=== PATIENT | female | born 1940 | race Caucasian/White ===

== ENCOUNTER → 2016-04-13 | Outpatient (CLI) | payer MEDICARE, MEDICAID ==
[~2016-04-13] MED LIST: ACTO150T PO; ALBU17IN INH; DOCU100C PO; FLEEENE4 PR; HYDR25TAB PO; LOSA100T36 PO; MAPA325T2 PO; MECL-68 PO; NORCOTAB PO; NYST10PW TOP; OMEP20CA3 PO; ONDA4VLL IV; OXYC1TAB23 PO; PEG1POW PO; PLAV75TA38 PO; POTA10CA PO; SIMV10TA2 PO; ZANA4TAB PO
--- NOTE | 2016-04-13 12:36 | REP ---
THORACIC SPINE SERIES: THREE VIEWS. HISTORY: Radiculopathy in the lumbar region. Comparison studies are prior lumbar spine studies. Multiple prior lumbar spine MR and radiographic studies have been read as showing a stable wedge compression deformity at T12. This vertebral body does not have a rib. In any event, it is unchanged. There is reactive degenerative disc disease and sclerosis at the T11-12 level, and some degenerative disc changes are seen at T12-L1. Discogenic spurring is noted in the other mid and lower thoracic spine levels. Thoracic vertebral body heights are otherwise preserved. There are degenerative disc changes in the lower cervical spine on swimmer's lateral view. Pedicles and posterior elements are intact. A subtle dextroconvex curvature is seen in the thoracic spine. No paravertebral soft-tissue mass is seen. IMPRESSION: Degenerative spondylosis changes. No acute bony abnormality. Stable wedging at what has been labeled as the T12 level, unchanged. Signed by Elliot Dennis MD 04/13/2016 01:15 P
--- NOTE | 2016-04-13 13:02 | REP ---
Lumbar spine series: Five views. History: Radiculopathy in the lumbar region. Comparison study is from November 24, 2015. Findings: Lumbar vertebral body heights are preserved. There is moderate anterior wedging at the T12 vertebral body unchanged from the prior study. There is discogenic spurring at T12-L1, L1-L2, and to a lesser extent at each of the other lumbar levels. There is a vacuum phenomenon at the narrowed L4-5 disc. Degenerative disc changes at L4-5 are somewhat more pronounced than on the prior study. There is some osteoarthritic facet sclerosis and narrowing bilaterally at L4-5. Psoas margins are intact. There is partial sacralization of the L5 transverse processes bilaterally as before. Sacrum and SI joints are intact. Psoas margins are symmetric. Impression: Degenerative spondylosis changes. Stable T12 wedge compression fracture deformity. Degenerative disc changes at L4-5 are somewhat more pronounced. Signed by Elliot Dennis MD 04/13/2016 01:15 P
== END ==
LOC: M RAD 09:40
PROVIDERS: ATTEND Family Medicine
DX: M47.816 Spondylosis without myelopathy or radiculopathy, lumbar region (principal)

== ENCOUNTER → 2016-04-27 | Outpatient (CLI) | payer MEDICARE, MEDICAID ==
--- NOTE | 2016-05-03 01:01 | ECWPNPC ---
PATIENT NAME: SHAVON CHAVEZ : 1940 GENDER: FEMALE VISIT DATE: 04/27/2016 DISCHARGE DATE: 04/27/16 1609 VISIT LOCKED DATE TIME: PHYSICIAN: JULIO CÉSAR EDMONDS RESOURCE: JULIO CÉSAR EDMONDS REASON FOR APPOINTMENT 1. BACK PAIN HISTORY OF PRESENT ILLNESS NEW PATIENT CONSULT: 75 Y/O FEMALE REFERRED BY DR ALLEN FOR EVALUATION OF CHRONIC LOW THORACIC/LUMBAR PAIN AFTER FALL INJURY IN AUGUST.SHE WAS TREATED WITH TPI AT OUR CLINIC AT THAT TIME WHILE INPATIENT.SHE IS NOT SURE IF SHE GOT ANY IMPROVEMENT.REPORTING FREQUENT FALLS PAST YEAR.RATING PAIN VAS 5/10.DESCRIBES PAIN CONSTANT ACHING AND SHARP PAIN.ALSO REPORTING RIGHT LEG TIGHTNESS SINCE FALL.PAST HISTORY OF RIGHT LEG ANUERISM REPAIR WITH COIL PLACEMENT IN 2009.REPORTING DIFFICULTY STANDING TO DO DISHES.DENIES RECENT FEVER ,ILLNESS OR WEIGHT LOSS.REPORTING NO CHANGES IN BOWEL OR BLADDER FUNCTION. WHEN DID YOUR PAIN FIRST START? . BRIEFLY DESCRIBE HOW YOUR PAIN STARTED? . HOW DOES YOUR PAIN CHANGE WITH TIME? . DOES YOUR PAIN AWAKEN YOU FROM SLEEP? . HOW MANY HOURS OF SLEEP DO YOU NORMALLY GET? . ANY DIAGNOSTIC TESTING? . FACILITY WHERE TESTS WERE DONE? ____. PAIN TREATMENT TREATMENT YES CANCER HAVE YOU EVER HAD ANY TYPE OF CANCER?NO NO. PAIN SCREENING: PATIENT HAS A COMPLAINT OF ACUTE OR CHRONIC PAIN YES FALL RISK SCREENING: SCREENING :NO FALLS IN THE PAST YEAR WILEY INVENTORY: QUESTIONNAIRE ASSESSEDYES SCORE VALUE CALCULATED YES SCORE:6 CURRENT MEDICATIONS TAKING OMEPRAZOLE 20 MG CAPSULE DELAYED RELEASE ORALLY TWICE A DAY TAKING LOSARTAN POTASSIUM 100 MG TABLET ORALLY DAILY TAKING HYDROCHLOROTHIAZIDE 25 MG TABLET ORALLY DAILY TAKING SIMVASTATIN 10 MG TABLET ORALLY DAILY TAKING ACTONEL 150 MG TABLET ORALLY ONCE A MONTH TAKING PLAVIX 75 MG TABLET ORALLY EVERY OTHER DAY TAKING MECLIZINE HCL 25 MG TABLET ORALLY EVERY 8 HOURS NEEDED TAKING SENNA-DOCUSATE SODIUM 1 TABLET TWICE A DAY NEEDED TAKING TYLENOL 2 TABLETS ORAL TWICE A DAY NEEDED TAKING HYDROCODONE-ACETAMINOPHEN 5/325 MG 1 TABLET ORALLY EVERY 6 HRS NEEDED NOT-TAKING LOSARTAN POTASSIUM MEDICATION LIST REVIEWED AND RECONCILED WITH THE PATIENT PAST MEDICAL HISTORY HYPERTENSION HIGH CHOLESTEROL ACID REFLUX HIATEL HERNIA ARTHRITIS BACK PAIN ANUERYSM IN RIGHT LEG COMPRESSION FRACTURE ALLERGIES PENICILLIN (FOR ALLERGIES USE ONLY): SWELLING: ALLERGY ASPIRIN: NAUSEA/VOMITING: ALLERGY ZANTAC: HIVES: ALLERGY IBUPROFEN: NAUSEA/VOMITING: ALLERGY SURGICAL HISTORY HYSTERECTOMY 1970 RIGHT LEG ANUERYSM REPAIR 2009 FAMILY HISTORY FATHER: , DIAGNOSED WITH STROKE MOTHER: , DIAGNOSED WITH CANCER 1 BROTHER(S) , 1 SISTER(S) . SON AND DAUGHTER HAVE DIED6 SIBLINGS HAVE . SOCIAL HISTORY GENERAL: PAIN CLINIC PFS, CLERGY, PUBLIC HEALTH REFERRALS PFS REFERRAL NEEDED?NO CLERGY REFERRAL NEEDED?NO PUBLIC HEALTH REFERRAL NEEDED?NO WAS THE PROVIDER NOTIFIED OF ANY PERTINENT INFO?NO PSYCHOLOGICAL HX TREATMENTNO ALCOHOL OR DRUG TREATMENTNO PATIENT: DENIES USE OF ANY ILLEGAL SUBSTANCE INCLUDING MARIJUANA OR COCAINE, DENIES RECREATIONAL DRUG USE, DENIES ABUSE OR MISUSE OF ANY MEDICATION. ADVANCED DIRECTIVES HEALTH CARE PROXY?YES NAME OF HCP BEAU OCONNELL AND JAI WILSON CONTACT # FOR HCP BEAU OCONNELL [phone] IF YES, DO YOU HAVE A COPY WITH YOU?NO DO YOU HAVE A DNR?NO IF YES, DO YOU HAVE A COPY WITH YOU?NO LIVING WILL?NO POWER OF INDUSTRIAL SAFETY AND HEALTH MANAGER?NO SCREENING/ASSESSMENT TOOL NUTRITION ASSESSEDYES ARE YOU ON ANY SPECIAL DIET?NO ANY SIGNIFICANT CHANGES RELATED TO EATING, WEIGHT GAIN/LOSS, OR BOWEL HABITS?NO IF YES, IS YOUR PRIMARY CARE PROVIDER AWARE OF THIS?NO SPECIAL NEEDS GLASSES: NO , WALKER: NO , LEVEL OF CARE? SELF , DENTURES: NO , REFERRALS NEEDED: NO , HEARING AIDS: NO , WHEELCHAIR: NO , CONTACTS: NO , CANE: NO . TOBACCO USE ARE YOU A:FORMER SMOKER HOW LONG HAS IT BEEN SINCE YOU LAST SMOKED?> 10 YEARS VAPORNO E-CIGARETTENO CAFFEINE CAFFEINE USE?NO RECREATIONAL DRUG USE DRUG USE?NO PATIENT DENIES ABUSE OR MISSUSED OF ANY MEDICATION. PATIENT DENIES USE OF ANY ILLEGAL SUBSTANCE INCLUDING MARIJUANA OR COCAINE. REVIEW OF SYSTEMS CONSTITUTIONAL: ANY CHANGE IN YOUR MEDICAL CONDITION? NO . RECENT ILLNESS DENIES, DENIES . CHILLS NO . FEVER NO, DENIES . WEIGHT LOSS DENIES, DENIES . INFECTION: DO YOU HAVE NEW INFECTIONS? NO . DO YOU HAVE HISTORY OF MRSA? NO . MUSCULOSKELETAL: ANY NEW PATTERNS OF PAIN OR NUMBNESS? NO . SYTEMIC LUPUS NO . JOINT PAIN DENIES . JOINT STIFFNESS DENIES . GASTROENTEROLOGY: BOWEL INCONTINENCE DENIES . ANY NEW CHANGE IN BOWEL CONTROL? NO . BARRETTS ESOPHAGUS NO . CIRRHOSIS NO . HEPATITIS NO . LIVER FAILURE NO . ACID REFLUX YES . BLOOD IN STOOL DENIES . UNEXPLAINED WEIGHT LOSS NO . GENITOURINARY: ANY NEW CHANGE IN BLADDER CONTROL? NO . IS THERE A CHANCE YOU COULD BE ? NO . HEMATOLOGY/LYMPH: DENIES . BLEEDING DISORDER DENIES . DO YOU TAKE ANY BLOOD THINNERS? (FOR EXAMPLE- COUMADIN, PLAVIX, AGGRENOX, PLATEL, PRADAXA, OR XARELTO) YES, PLAVIX . WHEN WAS YOUR LAST DOSE? DATE: 04/26/16 TIME: . LOW PLATELET COUNT NO . SICKLE CELL DISEASE NO . VON WILLIEBRANDS NO . FACTOR V LEIDEN NO . THALLASEMIA NO . ANEMIA NO . EASY BRUISING NO . NEUROLOGY: HAVE YOU FALLEN IN THE PAST 6 MONTHS? YES . ANY NEW EXTREMITY NUMBNESS OR WEAKNESS? NO . HEAD INJURY NO . DEMENTIA NO . CEREBRAL PALSY NO . MULTIPLE SCLEROSIS NO . DIZZINESS NO . HEADACHE NO, DENIES . SEIZURES DENIES . STROKES NO . VERTIGO NO . CARDIOLOGY: DO YOU HAVE A PACEMAKER OR DEFIBRILLATOR? NO . ANGINA NO . HEART ATTACK NO . HEART SURGERY NO . CONGESTIVE HEART FAILURE/FLUID OVERLOAD NO . CHEST PAIN NO, DENIES, DENIES . HIGH BLOOD PRESSURE YES, ON MEDICATION(S) . IRREGULAR HEART BEAT NO . SHORTNESS OF BREATH DENIES, DENIES . RESPIRATORY: HAVE YOU BEEN SICK IN THE PAST WEEK? NO . FEVER NO . FLU LIKE SYMPTOMS? NO . CPAP NO . BYPAP NO . ASTHMA NO . EMPHYSEMA NO . CHRONIC LUNG DISEASES NO . SHORTNESS OF BREATH ON EXERTION NO . DO YOU USE ANY TYPE OF TOBACCO (SMOKE, SMOKELESS, CHEW)? NO . COUGH NO, DENIES, DENIES . SHORTNESS OF BREATH DENIES, DENIES . SNORING NO . INTEGUMENTARY: DO YOU HAVE ANY RASHES OR OPEN SORES? NO . ALLERGIC/IMMUNO: ARE YOU ALLERGIC TO SHELLFISH OR IV DYE? NO . ANY NEW ALLERGIES? NO . PSYCHIATRIC: DO YOU HAVE THOUGHTS OF HURTING YOURSELF OR SOMEONE ELSE? NO . ARE YOU ABUSED, NEGLECTED, OR IN AN UNSAFE ENVIRONMENT? NO . ENDOCRINOLOGY: THYROID DISEASE DENIES . ARE YOU DIABETIC? NO . DIABETES DENIES . THYROID DISORDER NO . OTHER: DO YOU NEED ANY PRESCRIPTIONS? NO . IF YES, PLEASE LIST: ____ . ANY NEW PROBLEMS WITH YOUR MEDICATIONS? NO . WHEN DID YOU LAST EAT? ____ . WHEN DID YOU LAST DRINK? ____ . WHAT DID YOU LAST DRINK? ____ . NAME OF PERSON DRIVING YOU HOME? ____ . DO YOU HAVE ANY OTHER QUESTIONS OR CONCERNS NO . HEENT: CHANGE IN VISION DENIES . LOSS OF HEARING DENIES . TROUBLE SWALLOWING DENIES . PSYCHOLOGY: ANXIETY DENIES . DEPRESSION DENIES . UROLOGY: URINARY INCONTINENCE DENIES . BLOOD IN URINE DENIES . REVIEWED BY: PROVIDER: JULIO CÉSAR REYES . VITAL SIGNS WT 183.4 LBS, HT 63", BMI 32.48 INDEX, BP 172/70 MANUAL, HR 90 /MIN, RR 18 /MIN, TEMP 98.3 F, OXYGEN SAT % 98, NA INITIALS TL 1304, REVIEWED BY: CSELEVATED BP, MANUAL BP 172/70-TL. EXAMINATION GENERAL EXAMINATION: HEENT:HEAD:, NORMOCEPHALIC, EYES:, EYES NORMAL, NOSE:, NOSE CLEAR, THROAT: NORMAL. LUNGS:LUNG SOUNDS ARE CLEAR. HEART:HEART RATE REGULAR. ABDOMEN:SOFT AND NOT TENDER, NON-DISTENDED. MUSCULOSKELETAL:*. LUMBAR SACRAL SPINEMUSCLE STRENGTH TESTING 5/5 BLE.PALPATION: + FOR PAIN OVER L/S SPINE. +FOR PAIN OVER L/S PARASPINALS. THORACIC SPINENEGATIVE FOR PAIN WITH PALPATION OF THORACIC SPINE. NEGATIVE FOR PAIN WITH PALPATION OF THORACIC PARASPINAL. CERVICALNEGATIVE FOR PAIN WITH PALPATION OF CERVICAL SPINE. NEGATIVE FOR PAIN WITH PALPATION OF CERVICAL PARASPINALS. NEGATIVE FOR PAIN WITH PALPATION OF TRAPEZIUS BILAT. SKIN:NORMAL, NO RASH. NEUROLOGIC EXAM:ALERT AND ORIENTED X 3, DTRS 1-2+ IN ALL 4 EXTREMITIES, DENIES UPPER EXTREMETIES SENSORY LOSS, DENIES LOWER EXTREMETIES SENSORY LOSS. DIAGNOSTIC: . DIAGNOSTIC: . 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 L3/4-L4/5 THERAPEUTIC FACET BLOCK NOTES: FACET JOINT INJECTION MATERIAL WAS PRINTED,FACET JOINT INJECTION: YOUR EXPERIENCE MATERIAL WAS PRINTED. REFERRAL TO:PHYSICAL THERAPIST REASON:2XWK X 6WK MUSCLE STRENGTHENING /ROJM LUMBAR SPINAL STENOSIS LUMBAR FACET JULIO CÉSAR PRESLEY 04/27/2016 2:33:11 PM > BILAT. L3/4-L4/5 THERAPEUTIC FACET BLOCK OTHERS CLINICAL NOTES: [facility]-STAT [id number], FALLS CARE PLAN: 1. RECOMMEND REMOVING ALL THROW RUGS. 2. RECOMMEND NIGHT LIGHTS 3. RECOMMEND WEARING RUBBER SOLED SHOES AND TO NOT GO BAREFOOT. 4.. ADVISED TO CHANGE POSITION SLOWLY FROM SUPINE TO STANDING TO AVOID DIZZINESS. 5. ADVISED TO USE ASSISTIVE DEVICE SUCH CANE OR WALKER 6. USE [employer] OR KEEP PORTABLE PHONE READILY AVAILABLE, #128 - SCREENING BMI AND F/U PLAN IN : BMI ABOVE NORMAL TODAY. DISCUSSED WITH PATIENT NUTRITIONAL FOOD CHOICES TO ASSIST WITH WEIGHT LOSS. RECCOMMENDED REDUCING SALT, SUGAR, SODA INTAKE. RECOMMEND INCREASE ACTIVITY TO INCLUDE WALKING ON A REGULAR BASIS. PROFESSIONAL NUTRITIONAL NUTRITIONAL GUIDANCE WAS OFFERED AND WAS DECLINED. , PATIENT WAS ADVISED TO START A WALKING PROGRAM TO STRENGTHEN LUMBAR PARASPINAL MUSCLES AND IMPROVE MOBILITY. THEY WERE ADVISED THAT THIS WILL IMPROVE WEIGHT LOSS AND ALSO DEPRESSION/FIBROMYALGIA SYMPTOMS. ADVISED TO WALK 10 MINUTES EVERY OTHER DAY ON A FLAT SURFACE. EMPHASIZED THE IMPORTANCE OF DOING THIS CONSISTANTLY AND NOT SPORATICALLY TO AVOID INJURY. STRONG ADVISED NOT TO DO MORE THAN 10 MINUTES EVERY OTHER DSY FOR THE FIRST 4 WEEKS. PROCEDURE CODES FA211 ESTABILISHED PATIENT [facility] FACILITY CHARGE G8783 BP SCR PRFRM RCMDD DEFIND SCR INTVL 3016F PT SCRND UNHLTHY [place] USE 1123F ACP DISCUSS/DSCN MKR DOCD 1036F TOBACCO NON-USER 0518F FALL PLAN OF CARE DOCD G8427 DOC MEDS VERIFIED W/PT OR RE G8417 BMI >=30 CALCUATE W/FOLLOWUP 3288F FALL RISK ASSESSMENT DOCD DISPOSITION & COMMUNICATION FOLLOW UP 2WK POST (REASON: BILAT L3/4-L4/5 THERAPEUTIC FACET BLOCK SEND STOP PLAVIX X7 DAYS SCHEDULE DAY #8) ELECTRONICALLY SIGNED BY ERIC MARTÍNEZ ON 05/02/2016 AT 06:54 PM EDT DISCLAIMER : THIS IS A VISIT SUMMARY EXTRACTED FROM THE [employer] CHART. IT IS NOT A COPY OF THE [employer] PROGRESS NOTE. MTDD
== END ==
LOC: M PAIN 13:20
PROVIDERS: ATTEND Nurse Practitioner Family
DX: M47.817 Spondylosis without myelopathy or radiculopathy, lumbosacral region (principal); M48.06 Spinal stenosis, lumbar region; M54.9 Dorsalgia, unspecified; Z79.891 Long term (current) use of opiate analgesic; Z79.899 Other long term (current) drug therapy; Z88.0 Allergy status to penicillin; Z88.6 Allergy status to analgesic agent; Z88.8 Allergy status to other drugs, medicaments and biological substances; I10 Essential (primary) hypertension; E78.00 Pure hypercholesterolemia, unspecified; K21.9 Gastro-esophageal reflux disease without esophagitis; K44.9 Diaphragmatic hernia without obstruction or gangrene

== ENCOUNTER → 2016-05-18 | Outpatient (CLI) | payer MEDICARE, MEDICAID ==
[~2016-05-18] MED LIST changes: +BUPIVACAINE HCL 0.25% 30 ML VIAL As Ordered ONE; +ISOVUE-M 300 61% 15ML VIAL (Q9967) As Ordered ONE; +LIDOCAINE 1% SDV INJ 30 ML VIAL As Ordered ONE; +TRIAMCINOLONE ACETONIDE SUSP 40 MG/ML VIAL (J3301) As Ordered ONE; +diazePAM 5 MG TAB As Ordered ONE; +oxyCODONE 5MG TAB As Ordered ONE
--- NOTE | 2016-05-18 13:40 | REP ---
PARTIAL LUMBAR SPINE SERIES: Five views. HISTORY: Injection procedure for pain. 50 seconds of fluoroscopy time is reported. FINDINGS: A sequence of five fluoroscopically obtained last image hold spot radiographs of the lumbar spine document various needle positions and contrast injections associated with lumbar spine facet injection procedure. Signed by Elliot Dennis MD 05/18/2016 03:43 P
--- NOTE | 2016-05-24 00:02 | ECWPNPC ---
PATIENT NAME: SHAVON CHAVEZ : 1940 GENDER: FEMALE VISIT DATE: 05/18/2016 DISCHARGE DATE: 05/18/16 1149 VISIT LOCKED DATE TIME: PHYSICIAN: COLUMBA SCOTT RESOURCE: COLUMBA SCOTT REASON FOR APPOINTMENT 1. LUMBAR FACET CURRENT MEDICATIONS TAKING OMEPRAZOLE 20 MG CAPSULE DELAYED RELEASE ORALLY TWICE A DAY, NOTES: 05/17/16 0700 TAKING LOSARTAN POTASSIUM 100 MG TABLET ORALLY DAILY, NOTES: 05/18/16 0615 TAKING HYDROCHLOROTHIAZIDE 25 MG TABLET ORALLY DAILY, NOTES: 05/17/16 0700 TAKING SIMVASTATIN 10 MG TABLET ORALLY DAILY, NOTES: 05/17/16 1900 TAKING ACTONEL 150 MG TABLET ORALLY ONCE A MONTH, NOTES: 04/28/16 TAKING PLAVIX 75 MG TABLET ORALLY EVERY OTHER DAY, NOTES: 05/10/16 TAKING MECLIZINE HCL 25 MG TABLET ORALLY EVERY 8 HOURS NEEDED, NOTES: NONE LATELY TAKING SENNA-DOCUSATE SODIUM 1 TABLET TWICE A DAY NEEDED, NOTES: 05/16/16 TAKING TYLENOL 2 TABLETS ORAL TWICE A DAY NEEDED, NOTES: 05/17/16 TAKING HYDROCODONE-ACETAMINOPHEN 5/325 MG 1 TABLET ORALLY EVERY 6 HRS NEEDED, NOTES: NONE LATELY NOT-TAKING LOSARTAN POTASSIUM MEDICATION LIST REVIEWED AND RECONCILED WITH THE PATIENT PAST MEDICAL HISTORY HYPERTENSION HIGH CHOLESTEROL ACID REFLUX HIATEL HERNIA ARTHRITIS BACK PAIN ANUERYSM IN RIGHT LEG COMPRESSION FRACTURE ALLERGIES PENICILLIN (FOR ALLERGIES USE ONLY): SWELLING: ALLERGY ASPIRIN: NAUSEA/VOMITING: ALLERGY ZANTAC: HIVES: ALLERGY IBUPROFEN: NAUSEA/VOMITING: ALLERGY VITAL SIGNS WT 183 LBS, HT 63", BMI 32.41 INDEX, BP 180/81 MM HG, HR 98 /MIN, RR 18 /MIN, TEMP 98.4 F, OXYGEN SAT % 98%, NA INITIALS SC09:24, REVIEWED BY: MLF. ASSESSMENTS SPONDYLOSIS WITHOUT MYELOPATHY OR RADICULOPATHY, LUMBAR REGION - M47.816 (PRIMARY) SPONDYLOSIS WITHOUT MYELOPATHY OR RADICULOPATHY, LUMBOSACRAL REGION - M47.817 PROCEDURES PN LUMBAR FACET BLOCK THERAPEUTIC PRE PROCEDURE DIAGNOSIS LUMBAR SPONDYLOSIS, LUMBOSACRAL SPONDYLOSIS POST PROCEDURE DIAGNOSIS LUMBAR SPONDYLOSIS,, LUMBOSACRAL SPONDYLOSIS PROCEDURE BILATERAL L4-L5 AND BILATERAL L5-S1 FACET THERAPEUTIC BLOCK SURGEON DR. COLUMBA SCOTT EMERGENCY ROOM PHYSICIAN NONE ANESTHESIA LOCAL PRE PROCEDURE NOTE THE PATIENT HAS A HISTORY OF CHRONIC LOW BACK PAIN. I EVALUATE THE PATIENT AND REVIEWED THE CHART. I WENT OVER THE RISKS, ALTERNATIVES, AND BENEFITS ASSOCIATED WITH THIS PROCEDURE. THE PATIENT WOULD LIKE TO PROCEED AND GIVE CONSENT TO PERFORMED THE PROCEDURE. THE PATIENT DENIES UNEXPLAINABLE WEIGHT LOSS, FEVER, CHILLS, OR NEW CHANGES IN URINARY OR BOWEL CONTROL DESCRIPTION OF PROCEDURE THE PATIENT WAS BROUGHT TO THE PROCEDURE ROOM AND PLACED IN THE PRONE POSITION. THE LUMBOSACRAL AREA WAS CLEANED WITH CHLORAPREP SOLUTION AND DRAPED ASEPTICALLY. THE PROCEDURE WAS DONE UNDER STERILE CONDITIONS. I CHECKED LATERALITY AND THE LEVEL WHERE THE PROCEDURE WAS GOING TO BE PERFORMED WITH THE PATIENT AND THE SUPPORTING STAFF AT THE MOMENT OF THE TIME OUT IN THE PROCEDURE ROOM. UNDER FLUOROSCOPIC GUIDANCE, THE TARGET POINT WAS SELECTED AT THE RIGHT AND LEFT L4-L5 AND RIGHT AND LEFT L5-S1 FACET JOINT. TARGET POINT WAS SELECTED AFTER LATERAL ROTATION AND TILT OF THE MAGNIFIER OF THE C-ARM. LIDOCAINE 0.5% WAS USED TO NUMB THE SKIN AND THE SUBCUTANEOUS TISSUE BELOW IT. SPINAL NEEDLES, 22-GAUGE, WERE ADVANCED UNDER FLUOROSCOPIC GUIDANCE AND FOLLOWING PATIENT FEEDBACK UNTIL THE TARGETS WERE TOUCHED. THE POSITION OF THE NEEDLES WAS VERIFIED WITH AP AND LATERAL VIEWS. AFTER PROPER POSITION OF THE NEEDLES WAS ACHIEVED, ISOVUE-M DYE 30% 0.1 ML WAS INJECTED SHOWING ADEQUATE SPREAD OF THE DYE. THEN A SOLUTION OF 1.9 ML OF BUPIVACAINE 0.125% OF KENALOG 10 MG WAS INJECTED AT EACH SITE. THERE WAS NO EVIDENCE OF BLOOD, PARESTHESIA OR CEREBROSPINAL FLUID DURING THE PROCEDURE. THE PATIENT WAS SENT TO THE RECOVERY ROOM. THE PATIENT WAS MOVING THE EXTREMITIES AND DOING WELL. THERE WAS NO COMPLICATION DURING THE PROCEDURE. FLUOROSCOPY TIME WAS 50 SECONDS POST PROCEDURE NOTE THE PATIENT WILL BE SEEN IN A FOLLOW UP IN THE NEXT FEW WEEKS. INSTRUCTIONS WERE GIVEN, QUESTIONS WERE ANSWERED, AND THE PATIENT EXPRESSED UNDERSTANDING AND AGREES WITH THE PLAN. I, VICTOR HUGO HINOJOSA, DOCUMENTED THE ABOVE INFORMATION ACTING A SCRIBE FOR DR. SCOTT. I HAVE REVIEWED THE ABOVE DOCUMENT, WRITTEN BY VICTOR HUGO HINOJOSA SCRIBPaz AND I VERIFY THAT IT IS ACCURATE. DIAGNOSTIC IMAGING [facility] FACET BLOCK (PAIN)[id number] PROCEDURE CODES 69565 INJ PARAVERT F JNT L/S 1 LEV 03690 INJ PARAVERT F JNT L/S 2 LEV 6045F RADXPS IN END [id number] PXD DISPOSITION & COMMUNICATION FOLLOW UP 3 WEEKS ELECTRONICALLY SIGNED BY COLUMBA SCOTT MD ON 05/23/2016 AT 09:50 PM EDT DISCLAIMER : THIS IS A VISIT SUMMARY EXTRACTED FROM THE [employer] CHART. IT IS NOT A COPY OF THE [employer] PROGRESS NOTE. MTDD
== END ==
LOC: M PAIN 09:00
PROVIDERS: ATTEND Anesthesiology
DX: M47.816 Spondylosis without myelopathy or radiculopathy, lumbar region (principal); M47.817 Spondylosis without myelopathy or radiculopathy, lumbosacral region; Z79.891 Long term (current) use of opiate analgesic; Z79.899 Other long term (current) drug therapy; K21.9 Gastro-esophageal reflux disease without esophagitis
CPT/HCPCS: 64493; 64494; J3301; Q9967

== ENCOUNTER → 2016-06-08 | Outpatient (CLI) | payer MEDICARE, MEDICAID ==
[~2016-06-08] MED LIST changes: -BUPIVACAINE HCL 0.25% 30 ML VIAL As Ordered ONE; -ISOVUE-M 300 61% 15ML VIAL (Q9967) As Ordered ONE; -LIDOCAINE 1% SDV INJ 30 ML VIAL As Ordered ONE; -TRIAMCINOLONE ACETONIDE SUSP 40 MG/ML VIAL (J3301) As Ordered ONE; -diazePAM 5 MG TAB As Ordered ONE; -oxyCODONE 5MG TAB As Ordered ONE
--- NOTE | 2016-06-22 01:02 | ECWPNPC ---
PATIENT NAME: SHAVON CHAVEZ : 1940 GENDER: FEMALE VISIT DATE: 06/08/2016 DISCHARGE DATE: 06/08/16 1026 VISIT LOCKED DATE TIME: PHYSICIAN: JULIO CÉSAR EDMONDS RESOURCE: JULIO CÉSAR EDMONDS REASON FOR APPOINTMENT 1. LOW BACK HISTORY OF PRESENT ILLNESS HISTORY OF PRESENT ILLNESS: HER FOR POST PROCEDURE F/U.HAD BILAT. L4/5-L5/S1 THERAPEUTIC FACET BLOCK ON 05-18-16.REPORTS NO IMPROVEMENT POST PROCEDURE.RATING PAIN VAS 5/10.CONTINUES WITH COMPLAINTS OF UNSTEADY BALANCE AND INABILITY TO TOLERATE LOW BACK PAIN WHILE STANDING TO DO DISHES.DISCUSSED TREATMENT OPTIONS TO INCLUDE LESI AND RECONDITIONING PROGRAM.PATIENT WOULD LIKE TO TRY WALKING PROGRAM AND WILL THINK ABOUT ANY MORE INJECTIONS. PAIN THE PATIENT DESCRIBES THE PAIN... FALL RISK SCREENING: SCREENING :NO FALLS IN THE PAST YEAR CURRENT MEDICATIONS TAKING OMEPRAZOLE 20 MG CAPSULE DELAYED RELEASE ORALLY TWICE A DAY PRN TAKING LOSARTAN POTASSIUM 100 MG TABLET ORALLY DAILY TAKING HYDROCHLOROTHIAZIDE 25 MG TABLET ORALLY DAILY TAKING SIMVASTATIN 10 MG TABLET ORALLY DAILY TAKING ACTONEL 150 MG TABLET ORALLY ONCE A MONTH TAKING PLAVIX 75 MG TABLET ORALLY EVERY OTHER DAY TAKING MECLIZINE HCL 25 MG TABLET ORALLY EVERY 8 HOURS NEEDED TAKING SENNA-DOCUSATE SODIUM 1 TABLET TWICE A DAY NEEDED TAKING TYLENOL 500MGS 2 TABLETS ORAL TWICE A DAY NEEDED TAKING HYDROCODONE-ACETAMINOPHEN 5/325 MG 1 TABLET ORALLY EVERY 6 HRS NEEDED NOT-TAKING LOSARTAN POTASSIUM MEDICATION LIST REVIEWED AND RECONCILED WITH THE PATIENT PAST MEDICAL HISTORY HYPERTENSION HIGH CHOLESTEROL ACID REFLUX HIATEL HERNIA ARTHRITIS BACK PAIN ANUERYSM IN RIGHT LEG COMPRESSION FRACTURE ALLERGIES PENICILLIN (FOR ALLERGIES USE ONLY): SWELLING: ALLERGY ASPIRIN: NAUSEA/VOMITING: ALLERGY ZANTAC: HIVES: ALLERGY IBUPROFEN: NAUSEA/VOMITING: ALLERGY SOCIAL HISTORY GENERAL: TOBACCO USE ARE YOU A:FORMER SMOKER VAPORNO HOW LONG HAS IT BEEN SINCE YOU LAST SMOKED?> 10 YEARS E-CIGARETTENO RECREATIONAL DRUG USE PATIENT DENIES USE OF ANY ILLEGAL SUBSTANCE INCLUDING MARIJUANA OR COCAINE. PATIENT DENIES ABUSE OR MISSUSED OF ANY MEDICATION. DRUG USE?NO CAFFEINE CAFFEINE USE?NO PSYCHOLOGICAL HX TREATMENTNO PAIN CLINIC PFS, CLERGY, PUBLIC HEALTH REFERRALS CLERGY REFERRAL NEEDED?NO WAS THE PROVIDER NOTIFIED OF ANY PERTINENT INFO?NO PFS REFERRAL NEEDED?NO PUBLIC HEALTH REFERRAL NEEDED?NO PATIENT: DENIES USE OF ANY ILLEGAL SUBSTANCE INCLUDING MARIJUANA OR COCAINE, DENIES RECREATIONAL DRUG USE, DENIES ABUSE OR MISUSE OF ANY MEDICATION. ADVANCED DIRECTIVES HEALTH CARE PROXY?YES DO YOU HAVE A COPY WITH YOU?NO POWER OF HALF BACKER?NO NAME OF HCP BEAU OCONNELL AND JAI STEVE CONTACT # FOR HCP BEAU OCONNELL [phone] REVIEW OF SYSTEMS CONSTITUTIONAL: ANY CHANGE IN YOUR MEDICAL CONDITION? NO . CHILLS NO . FEVER NO . INFECTION: DO YOU HAVE NEW INFECTIONS? NO . DO YOU HAVE HISTORY OF MRSA? NO . MUSCULOSKELETAL: ANY NEW PATTERNS OF PAIN OR NUMBNESS? NO . GASTROENTEROLOGY: ANY NEW CHANGE IN BOWEL CONTROL? NO . GENITOURINARY: ANY NEW CHANGE IN BLADDER CONTROL? NO . IS THERE A CHANCE YOU COULD BE ? NO . HEMATOLOGY/LYMPH: DO YOU TAKE ANY BLOOD THINNERS? (FOR EXAMPLE- COUMADIN, PLAVIX, AGGRENOX, PLATEL, PRADAXA, OR XARELTO) YES, PLAVIX . WHEN WAS YOUR LAST DOSE? DATE: TIME: 06/07/16 0700 . NEUROLOGY: HAVE YOU FALLEN IN THE PAST 6 MONTHS? YES, A COUPL OF TIMES. LAST NO INJURY. . ANY NEW EXTREMITY NUMBNESS OR WEAKNESS? NO . CARDIOLOGY: DO YOU HAVE A PACEMAKER OR DEFIBRILLATOR? NO . RESPIRATORY: HAVE YOU BEEN SICK IN THE PAST WEEK? NO . FEVER NO . FLU LIKE SYMPTOMS? NO . COUGH NO . INTEGUMENTARY: DO YOU HAVE ANY RASHES OR OPEN SORES? NO . ALLERGIC/IMMUNO: ARE YOU ALLERGIC TO SHELLFISH OR IV DYE? NO . ANY NEW ALLERGIES? NO . PSYCHIATRIC: DO YOU HAVE THOUGHTS OF HURTING YOURSELF OR SOMEONE ELSE? NO . ARE YOU ABUSED, NEGLECTED, OR IN AN UNSAFE ENVIRONMENT? NO . ENDOCRINOLOGY: ARE YOU DIABETIC? NO . OTHER: DO YOU NEED ANY PRESCRIPTIONS? NO . IF YES, PLEASE LIST: ____ . ANY NEW PROBLEMS WITH YOUR MEDICATIONS? NO . WHEN DID YOU LAST EAT? ____ . WHEN DID YOU LAST DRINK? ____ . WHAT DID YOU LAST DRINK? ____ . NAME OF PERSON DRIVING YOU HOME? ____ . DO YOU HAVE ANY OTHER QUESTIONS OR CONCERNS NOT MUCH RELIEF FROM THE FACET BLOCK DONE 05/18/16. SHE FORGOT TO BRING HER PAIN DIARY. NOT INTERESTED IN RF. SHE IS UNABLE TO STAND FOR ANY PERIOD OF TIME DUE TO PAIN AND THIS CAUSES HER BALANCE TO BE OFF . REVIEWED BY: PROVIDER: JULIO CÉSAR REYES . VITAL SIGNS WT 189.8 LBS, HT 63", BMI 33.62 INDEX, BP 160/80 MANUAL, HR 78 /MIN, RR 18 /MIN, TEMP 97.7 F, OXYGEN SAT % 98%, NA INITIALS TL 0932, REVIEWED BY: ADELEVATED BP 160/80 MANUAL- TL. EXAMINATION GENERAL EXAMINATION: HEENT:HEAD:, NORMOCEPHALIC, EYES:, EYES NORMAL, NOSE:, NOSE CLEAR, THROAT: NORMAL. LUNGS:LUNG SOUNDS ARE CLEAR. HEART:HEART RATE REGULAR. ABDOMEN:SOFT AND NOT TENDER, NON-DISTENDED. MUSCULOSKELETAL:*. LUMBAR SACRAL SPINEMUSCLE STRENGTH TESTING 5/5 BLE.PALPATION: + FOR PAIN OVER L/S SPINE. +FOR PAIN OVER L/S PARASPINALS. THORACIC SPINENEGATIVE FOR PAIN WITH PALPATION OF THORACIC SPINE. NEGATIVE FOR PAIN WITH PALPATION OF THORACIC PARASPINAL. CERVICALNEGATIVE FOR PAIN WITH PALPATION OF CERVICAL SPINE. NEGATIVE FOR PAIN WITH PALPATION OF CERVICAL PARASPINALS. NEGATIVE FOR PAIN WITH PALPATION OF TRAPEZIUS BILAT. SKIN:NORMAL, NO RASH. NEUROLOGIC EXAM:ALERT AND ORIENTED X 3, DTRS 1-2+ IN ALL 4 EXTREMITIES, DENIES UPPER EXTREMETIES SENSORY LOSS, DENIES LOWER EXTREMETIES SENSORY LOSS. DIAGNOSTIC:MRIL/S [id number] REVIEWED. ASSESSMENTS SPONDYLOSIS OF LUMBOSACRAL REGION, UNSPECIFIED SPINAL OSTEOARTHRITIS COMPLICATION STATUS - M47.817 (PRIMARY) LUMBAR SPINAL STENOSIS - M48.06 TREATMENT SPONDYLOSIS OF LUMBOSACRAL REGION, UNSPECIFIED SPINAL OSTEOARTHRITIS COMPLICATION STATUS NOTES: PATIENT WAS ADVISED TO START A WALKING PROGRAM TO STRENGTHEN LUMBAR PARASPINAL MUSCLES AND IMPROVE MOBILITY. THEY WERE ADVISED THAT THIS WILL IMPROVE WEIGHT LOSS AND ALSO DEPRESSION/FIBROMYALGIA SYMPTOMS. ADVISED TO WALK 10 MINUTES EVERY OTHER DAY ON A FLAT SURFACE. EMPHASIZED THE IMPORTANCE OF DOING THIS CONSISTANTLY AND NOT SPORATICALLY TO AVOID INJURY. STRONG ADVISED NOT TO DO MORE THAN 10 MINUTES EVERY OTHER DAY FOR THE FIRST 4 WEEKS. PROCEDURE CODES FA211 ESTABILISHED PATIENT [facility] FACILITY CHARGE G8730 PAIN ASSESS POS TOOL F/U PLAN DOC G8427 DOC MEDS VERIFIED W/PT OR RE DISPOSITION & COMMUNICATION FOLLOW UP 2 MONTHS ELECTRONICALLY SIGNED BY ERIC MARTÍNEZ ON 06/21/2016 AT 04:31 PM EDT DISCLAIMER : THIS IS A VISIT SUMMARY EXTRACTED FROM THE [email or web address] CHART. IT IS NOT A COPY OF THE [email or web address] PROGRESS NOTE. TARID
== END ==
LOC: M PAIN 09:40
PROVIDERS: ATTEND Nurse Practitioner Family
DX: M47.817 Spondylosis without myelopathy or radiculopathy, lumbosacral region (principal); M48.06 Spinal stenosis, lumbar region; Z79.891 Long term (current) use of opiate analgesic; Z79.899 Other long term (current) drug therapy; Z88.6 Allergy status to analgesic agent; Z88.8 Allergy status to other drugs, medicaments and biological substances; I10 Essential (primary) hypertension; E78.00 Pure hypercholesterolemia, unspecified; K21.9 Gastro-esophageal reflux disease without esophagitis; M19.90 Unspecified osteoarthritis, unspecified site; K44.0 Diaphragmatic hernia with obstruction, without gangrene; Z86.79 Personal history of other diseases of the circulatory system; Z87.81 Personal history of (healed) traumatic fracture

== ENCOUNTER → 2016-06-16 | Outpatient (CLI) | payer MEDICARE, MEDICAID ==
--- NOTE | 2016-06-16 10:44 | REPMRS ---
Patient History The patient states she has not had a clinical breast exam in over a year. Patient is postmenopausal. No known family history of cancer. Digital Woman Screen Mammo: June 16, 2016 - Exam #: [id number] Bilateral CC and MLO view(s) were taken. Technologist: Marjorie Russo Technologist Prior study comparison: January 04, 2015, digital woman screen mammo performed at [facility] to [facility]. December 01, 2013, digital woman screen mammo performed at [facility] to [facility]. FINDINGS: There are scattered fibroglandular densities. There has been no change in the appearance of the mammogram from the prior studies. There is a mild amount of residual fibroglandular tissue which is fairly symmetric. There is no interval development of dominant mass, architectural distortion, or clustered microcalcification suggestive of malignancy. ASSESSMENT: BI-RADS/ACR category 1 mammogram. Negative. Recommendation Routine screening mammogram in 1 year (for women over age 40). This mammogram was interpreted with the aid of an FDA-approved computer-aided dectection system. Electronically Signed By: Solo Nava MD 06/16/16 0258
--- NOTE | 2016-06-19 10:33 | DEXA ---
AP SPINE L1 - L4 1.142 -0.4 0.7 LT FEMUR TOTAL 0.725 -2.2 -1.0 RT FEMUR TOTAL 0.723 -2.3 -1.0 TOTAL BODY TOTAL OTHER DUAL FEMUR FRAX* ASSESSMENT Risk factors: History of adult fracture. 10 year probability of fracture Major osteoporotic fracture 24.3 % Hip fracture 7.4 % COMMENTS: Normal bone densitometry of the spine. There is low bone density of the right hip. There is osteoporosis of the left hip. The density of the spine has increased 37.4% since the initial exam on 1999. The spine density has increased 17.6% since the most recent exam on 10/30/2012. The density of the left hip has decreased 0.5% since the initial exam on 1999. The density of the left hip has decreased 3.6% since the most recent exam on . The density of the right hip has increased 1.7% since the initial exam on 1999. The density of the right hip has increased 2.1% since the most recent exam on . FOLLOW-UP: Recommendation for the next bone density exam: 2 years. NOEMI
== END ==
LOC: M WHC 08:38
PROVIDERS: ATTEND Family Medicine
DX: Z12.31 Encounter for screening mammogram for malignant neoplasm of breast (principal); M81.0 Age-related osteoporosis without current pathological fracture; Z78.0 Asymptomatic menopausal state; Z87.81 Personal history of (healed) traumatic fracture
CPT/HCPCS: 77080; G0202

== ENCOUNTER → 2016-09-05 | Outpatient (CLI) | payer MEDICARE, MEDICAID ==
[~2016-09-05] MED LIST changes: -DOCU100C PO; +DOCU100C16 PO; +PLAV1TAB2 PO; -PLAV75TA38 PO
--- NOTE | 2016-09-06 01:21 | ECWPNPC ---
PATIENT NAME: SHAVON CHAVEZ : 1940 GENDER: FEMALE VISIT DATE: 09/05/2016 DISCHARGE DATE: 09/05/16 0948 VISIT LOCKED DATE TIME: PHYSICIAN: JULIO CÉSAR EDMONDS RESOURCE: JULIO CÉSAR EDMONDS REASON FOR APPOINTMENT 1. MEDS HISTORY OF PRESENT ILLNESS HISTORY OF PRESENT ILLNESS: HERE FOR F/U OF CHRONIC LBP R>L.RATING PAIN VAS 6/10.PAIN IS DESCRIBED ACHING,SHE FEELS SHE IS DOING BETTER SINCE STARTING WALKING PROGRAM.UP TO 8MIN QOD.DISCUSSED TREATMENT OPTIONS.SHE WOULD LIKE TO HOLD OFF ON INJECTIONS.DISCUSSED USING LUMBAR SUPPORT AND WE WILL REFER TO [facility] FOR LUMBAR SUPPORT. PAIN THE PATIENT DESCRIBES THE PAIN... FALL RISK SCREENING: SCREENING :NO FALLS IN THE PAST YEAR CURRENT MEDICATIONS TAKING OMEPRAZOLE 20 MG CAPSULE DELAYED RELEASE ORALLY TWICE A DAY PRN TAKING LOSARTAN POTASSIUM 100 MG TABLET ORALLY DAILY TAKING HYDROCHLOROTHIAZIDE 25 MG TABLET ORALLY DAILY TAKING SIMVASTATIN 10 MG TABLET ORALLY DAILY TAKING ACTONEL 150 MG TABLET ORALLY ONCE A MONTH TAKING PLAVIX 75 MG TABLET ORALLY EVERY OTHER DAY TAKING MECLIZINE HCL 25 MG TABLET ORALLY EVERY 8 HOURS NEEDED TAKING SENNA-DOCUSATE SODIUM 1 TABLET TWICE A DAY NEEDED TAKING TYLENOL 500MGS 2 TABLETS ORAL TWICE A DAY NEEDED TAKING HYDROCODONE-ACETAMINOPHEN 5/325 MG 1 TABLET ORALLY EVERY 6 HRS NEEDED NOT-TAKING LOSARTAN POTASSIUM MEDICATION LIST REVIEWED AND RECONCILED WITH THE PATIENT PAST MEDICAL HISTORY HYPERTENSION HIGH CHOLESTEROL ACID REFLUX HIATEL HERNIA ARTHRITIS BACK PAIN ANUERYSM IN RIGHT LEG COMPRESSION FRACTURE ALLERGIES PENICILLIN (FOR ALLERGIES USE ONLY): SWELLING: ALLERGY ASPIRIN: NAUSEA/VOMITING: ALLERGY ZANTAC: HIVES: ALLERGY IBUPROFEN: NAUSEA/VOMITING: ALLERGY SOCIAL HISTORY GENERAL: TOBACCO USE ARE YOU A:FORMER SMOKER VAPORNO HOW LONG HAS IT BEEN SINCE YOU LAST SMOKED?> 10 YEARS E-CIGARETTENO RECREATIONAL DRUG USE PATIENT DENIES USE OF ANY ILLEGAL SUBSTANCE INCLUDING MARIJUANA OR COCAINE. PATIENT DENIES ABUSE OR MISSUSED OF ANY MEDICATION. DRUG USE?NO CAFFEINE CAFFEINE USE?NO [facility]EH[facility] [id number] SCIENTOLOGIST PSYCHOLOGICAL TREATMENT PAIN CLINIC PFS, CLERGY, PUBLIC HEALTH REFERRALS PFS REFERRAL NEEDED?NO CLERGY REFERRAL NEEDED?NO PUBLIC HEALTH REFERRAL NEEDED?NO WAS THE PROVIDER NOTIFIED OF ANY PERTINENT INFO?NO HAS THE PATIENT BEEN EDUCATED REGARDING HIS/HER PLAN OF CARE?YES HAS THE PATIENT BEEN EDUCATED REGARDING PAIN, THE RISK FOR PAIN, THE IMPORTANCE OF EFFECTIVE PAIN MANAGEMENT, AND THE PAIN ASSESSMENT PROCESS?YES PATIENT: DENIES USE OF ANY ILLEGAL SUBSTANCE INCLUDING MARIJUANA OR COCAINE, DENIES RECREATIONAL DRUG USE, DENIES ABUSE OR MISUSE OF ANY MEDICATION. ADVANCE DIRECTIVES HEALTH CARE PROXY?YES DO YOU HAVE A COPY WITH YOU?NO POWER OF CASE TECHNICIAN?NO NAME OF HCP BEAU OCONNELL AND JAI WILSON CONTACT # FOR HCP BEAU OCONNELL [phone] REVIEW OF SYSTEMS REVIEWED BY: PROVIDER: JULIO CÉSAR REYES . CONSTITUTIONAL: ANY CHANGE IN YOUR MEDICAL CONDITION? NO . CHILLS NO . FEVER NO . INFECTION: DO YOU HAVE NEW INFECTIONS? NO . DO YOU HAVE HISTORY OF MRSA? NO . MUSCULOSKELETAL: ANY NEW PATTERNS OF PAIN OR NUMBNESS? NO . GASTROENTEROLOGY: ANY NEW CHANGE IN BOWEL CONTROL? NO . GENITOURINARY: ANY NEW CHANGE IN BLADDER CONTROL? NO . IS THERE A CHANCE YOU COULD BE ? NO . HEMATOLOGY/LYMPH: DO YOU TAKE ANY BLOOD THINNERS? (FOR EXAMPLE- COUMADIN, PLAVIX, AGGRENOX, PLATEL, PRADAXA, OR XARELTO) YES, PLAVIX . WHEN WAS YOUR LAST DOSE? DATE: TIME: . NEUROLOGY: HAVE YOU FALLEN IN THE PAST 6 MONTHS? NO . ANY NEW EXTREMITY NUMBNESS OR WEAKNESS? NO . CARDIOLOGY: DO YOU HAVE A PACEMAKER OR DEFIBRILLATOR? NO . RESPIRATORY: HAVE YOU BEEN SICK IN THE PAST WEEK? NO . FEVER NO . FLU LIKE SYMPTOMS? NO . COUGH NO . INTEGUMENTARY: DO YOU HAVE ANY RASHES OR OPEN SORES? NO . ALLERGIC/IMMUNO: ARE YOU ALLERGIC TO SHELLFISH OR IV DYE? NO . ANY NEW ALLERGIES? NO . PSYCHIATRIC: DO YOU HAVE THOUGHTS OF HURTING YOURSELF OR SOMEONE ELSE? NO . ARE YOU ABUSED, NEGLECTED, OR IN AN UNSAFE ENVIRONMENT? NO . ENDOCRINOLOGY: ARE YOU DIABETIC? NO . OTHER: DO YOU NEED ANY PRESCRIPTIONS? NO . IF YES, PLEASE LIST: ____ . ANY NEW PROBLEMS WITH YOUR MEDICATIONS? NO . WHEN DID YOU LAST EAT? ____ . WHEN DID YOU LAST DRINK? ____ . WHAT DID YOU LAST DRINK? ____ . NAME OF PERSON DRIVING YOU HOME? ____ . DO YOU HAVE ANY OTHER QUESTIONS OR CONCERNS NO . VITAL SIGNS WT 184 LBS, HT 63", BMI 32.59 INDEX, BP 153/76 MM HG, HR 101 /MIN, RR 18 /MIN, TEMP 97.5 F, OXYGEN SAT % 99%, REVIEWED BY: ANCA. EXAMINATION GENERAL EXAMINATION: GENERAL APPEARANCE:ALERT/ORIENTED.NO ACUTE DISTRESS.. LUNGS:LUNG MCLEAN ARE CLEAR TO AUSCULTATION BILATERALLY. GOOD MOVEMENT OF AIR. HEART:S1, S2 IN A REGULAR RATE AND RHYTHM. NO SIGNIFICANT MURMURS, RUBS OR GALLOPS NOTED. LUMBAR SACRAL SPINEMUSCLE STRENGTH TESTING 5/5 BILATERAL.SPECIFIC POINT TENDERNESS OVER RSIJ. ASSESSMENTS SPONDYLOSIS OF LUMBOSACRAL REGION, UNSPECIFIED SPINAL OSTEOARTHRITIS COMPLICATION STATUS - M47.817 (PRIMARY) LUMBAR SPINAL STENOSIS - M48.06 SACROILIITIS - M46.1 TREATMENT SPONDYLOSIS OF LUMBOSACRAL REGION, UNSPECIFIED SPINAL OSTEOARTHRITIS COMPLICATION STATUS NOTES: CONTINUE WALKINGREFER TO [facility] FOR LUMBAR SUPPORT. PROCEDURE CODES FA211 ESTABILISHED PATIENT [facility] FACILITY CHARGE G8730 PAIN ASSESS POS TOOL F/U PLAN DOC G8427 DOC MEDS VERIFIED W/PT OR RE DISPOSITION & COMMUNICATION FOLLOW UP 3 MONTHS ELECTRONICALLY SIGNED BY ERIC MARTÍNEZ ON 09/05/2016 AT 01:34 PM EDT DISCLAIMER : THIS IS A VISIT SUMMARY EXTRACTED FROM THE [employer] CHART. IT IS NOT A COPY OF THE [employer] PROGRESS NOTE. NOEMI
== END ==
LOC: M PAIN 09:00
PROVIDERS: ATTEND Nurse Practitioner Family
DX: M47.817 Spondylosis without myelopathy or radiculopathy, lumbosacral region (principal); M48.06 Spinal stenosis, lumbar region; M46.1 Sacroiliitis, not elsewhere classified; M54.5 Low back pain; Z79.891 Long term (current) use of opiate analgesic; Z79.899 Other long term (current) drug therapy; Z87.891 Personal history of nicotine dependence; Z88.0 Allergy status to penicillin; Z88.6 Allergy status to analgesic agent; Z88.8 Allergy status to other drugs, medicaments and biological substances

== ENCOUNTER → 2016-10-19 | Outpatient (CLI) | payer MEDICARE, MEDICAID ==
--- NOTE | 2016-10-19 15:12 | REP ---
Abdominal aorta ultrasound: Abdominal Aortic Measurements are as follows: Proximal 2.5 cm AP 2.6 cm TRV Renal Artery Level 2.4 cm AP 2.2 cm TRV Mid Aorta 2.2 cm AP 2.7 cm TRV Distal Aorta 1.9 cm AP 2.2 cm TRV R Iliac Artery 1.1 cm AP 1.6 cm TRV L Iliac Artery 1.5 cm AP 1.7 cm TRV There is no abdominal aortic aneurysm. Atheroma is identified throughout the abdominal aorta. The peak flow velocity in the right external iliac artery is 246.8 cm/sec. This is elevated. The peak flow velocity in the left external iliac arteries 86.1 cm/sec. Therefore, the possibility of right external iliac artery stenosis is raised. The exam is technically difficult because of the patient's body habitus. Signed by Solo Ratliff MD 10/19/2016 03:03 P
--- NOTE | 2016-10-19 15:25 | REP ---
ARTERIAL ULTRASOUND WITH DOPPLER BILATERAL LOWER EXTREMITIES HISTORY: Right popliteal artery aneurysm. The patient relates that the right popliteal artery aneurysm was repaired with a coil endovascular thrombosis in 2009. Peripheral vascular disease. FINDINGS: Ankle brachial indices are 0.9 on the right and 0.5 on the left. Scanning the right popliteal space confirms the presence of an aneurysm containing echogenic content with some foci of hyperechoic shadowing consistent with embolotherapy and thrombosis. The aneurysm measures 3.4 x 1.6 x 1.9 cm. The popliteal artery remains patent with normal triphasic flow and 43.0 cm/s peak systolic flow velocity. We were not able to visualize the flow in the proximal anterior tibial artery or the proximal posterior tibial artery and I cannot exclude occlusion just below the popliteal artery aneurysm of these vessels. Normal triphasic flow is seen from the right common femoral artery to the right popliteal artery. Biphasic flow is seen distal to this. RIGHT LOWER EXTREMITY VELOCITY CHART: Right DIRECTOR OF INFECTION CONTROL 320 cm/s Right profunda 121 cm/s Right proximal SFA 124 cm/s Right mid SFA 116 cm/s Right distal SFA 111 cm/s Right popliteal 43 cm/s Tibioperoneal trunk 38.9 cm/s Right distal posterior tibial artery 66 cm/s Right distal anterior tibial artery 34 cm/s There is a profunda generated director social on the right with the peak systolic flow velocity of 87 cm/s. On the left, there is abnormal monophasic flow from the common femoral artery distal to the proximal posterior tibial artery. The left external iliac artery is monophasic as well question and left common iliac or proximal external iliac stenosis. VELOCITY CHART LEFT LOWER EXTREMITY: Left DIRECTOR OF INFECTION CONTROL 88 cm/s Left profunda 57 cm/s Left proximal SFA 87 cm/s Mid SFA 81 cm/s Distal SFA 78 cm/s Popliteal 78 cm/s Proximal TITO 72 cm/s Tibioperoneal trunk 33 cm/s Proximal ORCHID GROWER 35 cm/s Distal ORCHID GROWER 26 cm/s Distal APA 19 cm/s IMPRESSION: 1. Somewhat low ankle brachial indices bilaterally. 2. Unable to visualize the proximal anterior tibial or posterior tibial just below the popliteal artery on the right. Status post coil embolotherapy with thrombosed popliteal artery aneurysm seen. Patent popliteal artery lumen. 3. question proximal stenotic disease in the left pelvis. Signed by Elliot Dennis MD 10/19/2016 03:53 P
== END ==
LOC: M RAD 10:34
PROVIDERS: ATTEND Surgery Vascular Surgery
DX: I73.9 Peripheral vascular disease, unspecified (principal); I72.4 Aneurysm of artery of lower extremity

== ENCOUNTER → 2016-11-15 | Outpatient (CLI) | payer MEDICARE, MEDICAID ==
[2016-11-15 11:17] LABS: ALBUMIN 3.8 GM/DL (3.2-5.2); ALBUMIN/GLOBULIN RATIO 1.15 (1.00-1.93); ALKALINE PHOSPHATASE 77 U/L (45-117); ALT/SGPT 18 U/L (12-78); ANION GAP 6 MEQ/L (8-16); AST/SGOT 8 U/L (15-37); BILIRUBIN,TOTAL 0.7 MG/DL (0.2-1.0); BLOOD UREA NITROGEN 8 MG/DL (7-18); CALCIUM LEVEL 9.5 MG/DL (8.8-10.2); CARBON DIOXIDE LEVEL 32 MEQ/L (21-32); CHLORIDE LEVEL 94 MEQ/L (98-107); GLOMERULAR FILTRATION RATE > 60.0 (>39); GLUCOSE, FASTING 107 MG/DL (83-110); POTASSIUM SERUM 3.4 MEQ/L (3.5-5.1); SODIUM LEVEL 132 MEQ/L (136-145); TOTAL PROTEIN 7.1 GM/DL (6.4-8.2)
== END ==
LOC: M LAB 09:49
PROVIDERS: ATTEND Surgery Vascular Surgery
DX: I70.0 Atherosclerosis of aorta (principal)

== ENCOUNTER → 2016-11-17 | Outpatient (CLI) | payer MEDICARE, MEDICAID ==
[~2016-11-17] MED LIST changes: +HEPARIN 1,000 UNITS/ML 10ML VIAL (FOR RADIOLOGY& DIALYSIS ONLY) As Ordered ONE; +ISOVUE-300 61% 50ML VIAL (Q9967) As Ordered ONE; +MIDAZOLAM INJ 2 MG/2 ML VIAL (J2250) As Ordered ONE; +PROTAMINE SULF INJ 50 MG/5 ML VIAL (J2720) As Ordered ONE; +fentaNYL 100 MCG/2 ML INJECTION (J3010) As Ordered ONE
--- NOTE | 2016-12-13 15:47 | REPIR ---
DATE OF PROCEDURE: 11/17/2016 PREPROCEDURE DIAGNOSES: Left lower extremity claudication. Right popliteal artery aneurysm, status post repair. POSTPROCEDURE DIAGNOSIS: Left lower extremity claudication. Right popliteal artery aneurysm, status post repair. OPERATIVE PROCEDURE: Aortogram, iliofemoral angiogram selective left common femoral artery catheter placement with left lower extremity angiogram. Left common and external iliac artery angioplasty and stent with a 10 x 49 Wallstent post dilated with an 8 x 4 balloon. Mynx closure of the right common femoral arteriotomy. SURGEON: Kota Goode MD SNOW RANGER: Paloma Langford ANESTHESIA: Local with sedation with 2 mg of versed, 100 mcg of Fentanyl and 10 mL of 2% lidocaine. FLUORO TIME: 2.222 minutes. CONTRAST: 15 mL of Isovue-300. SEDATION TIME: 8:32 a.m. to 9:32 a.m. for a total of 60 minutes. HEPARIN: 7,000 units. PROTAMINE: 50 mg COMPLICATIONS: None. DRAINS: None. SPECIMENS: None. IMPLANTS: Left common and external iliac artery stent with a 10 x 49 Wallstent. INDICATION: The patient is a 76-year-old female with a previous right popliteal artery aneurysm that has undergone repair, who now has left lower extremity claudication. The patient will undergo a left lower extremity angiogram with possible angioplasty and stent. Risks, benefits and alternative treatment options have been discussed with the patient. DESCRIPTION OF PROCEDURE: The patient was taken to the angiography suite, placed supine on the angiography table and then prepped and draped in a standard surgical fashion. Time-out was completed confirming the correct patient, procedure and laterality after which the right common femoral artery was cannulated with a micropuncture needle after anesthetizing the overlying skin with 1% lidocaine. This was upsized to a sheath. A catheter was then placed in the aorta and an aortogram was performed. The catheter was pulled down to the level of the bifurcation of the iliac arteries and an iliofemoral angiogram was performed. Catheter was then directed over the bifurcation of the iliac arteries and placed in the left common femoral artery and a left lower extremity angiogram was performed. The angiography showed approximately 80% stenosis in the left common and external iliac artery which was then angioplasty and stented with a 10 x 49 Wallstent post dilated with an 8 x 4 balloon. Completion angiography showed resolution of the stenosis with good flow into the left lower extremity. Catheters and wires were removed. A Mynx closure device was used to close the arteriotomy and the right common femoral artery with an additional 10 minutes of adjunctive pressure applied for hemostasis. Dressings were then applied. The patient tolerated the procedure well. All instrument, sponge and needle counts were correct at the end of the case. There were no complications. Dr. Goode was present for and directed the entire case. The patient was transferred to the holding area and subsequently discharged in stable condition. RADIOLOGIC SUPERVISION AND INTERPRETATION: The initial aortogram showed widely patent superior mesenteric celiac and renal arteries. The iliofemoral angiogram showed stenosis in the common and external iliac artery which was angioplasty and stented with a 10 x 49 Wallstent. The left lower extremity angiogram showed no significant stenosis. A Mynx closure device was used to close the arteriotomy and the right common femoral artery.
== END | disposition home or self-care (01) ==
LOC: M IRPRO 06:46
PROVIDERS: ATTEND Surgery Vascular Surgery
DX: I70.212 Atherosclerosis of native arteries of extremities with intermittent claudication, left leg (principal)
CPT/HCPCS: 37221; 75625; 75716; C1725; C1760; C1876; C1887; C1894; J2250; J2720; J3010; Q9967

== ENCOUNTER → 2017-04-10 | Outpatient (CLI) | payer MEDICARE, MEDICAID | LOC: M PAIN 08:30 | DX: M46.1 Sacroiliitis, not elsewhere classified (principal); M48.061 Spinal stenosis, lumbar region without neurogenic claudication; G89.29 Other chronic pain; I10 Essential (primary) hypertension; K21.9 Gastro-esophageal reflux disease without esophagitis; E78.00 Pure hypercholesterolemia, unspecified; Z79.01 Long term (current) use of anticoagulants; Z79.899 Other long term (current) drug therapy; Z88.8 Allergy status to other drugs, medicaments and biological substances; Z87.891 Personal history of nicotine dependence; Z86.79 Personal history of other diseases of the circulatory system; Z87.310 Personal history of (healed) osteoporosis fracture | CPT/HCPCS: G0463 ==

== ENCOUNTER → 2017-04-25 | Outpatient (CLI) | payer MEDICARE, MEDICAID | LOC: M RAD 09:13 | DX: I72.4 Aneurysm of artery of lower extremity (principal); Z96.9 Presence of functional implant, unspecified | CPT/HCPCS: 93925 ==

== ENCOUNTER → 2017-04-26 | Outpatient (CLI) | payer MEDICARE, MEDICAID ==
[~2017-04-26] MED LIST changes: -ACTO150T PO; -ALBU17IN INH; +BUPIVACAINE HCL 0.25% 30 ML VIAL As Ordered; -DOCU100C16 PO; -FLEEENE4 PR; -HEPARIN 1,000 UNITS/ML 10ML VIAL (FOR RADIOLOGY& DIALYSIS ONLY) As Ordered ONE; -HYDR25TAB PO; -ISOVUE-300 61% 50ML VIAL (Q9967) As Ordered ONE; +ISOVUE-M 300 61% 15ML VIAL (Q9967) As Ordered; +LIDOCAINE 1% SDV INJ 30 ML VIAL As Ordered; -LOSA100T36 PO; -MAPA325T2 PO; -MECL-68 PO; -MIDAZOLAM INJ 2 MG/2 ML VIAL (J2250) As Ordered ONE; -NORCOTAB PO; -NYST10PW TOP; -OMEP20CA3 PO; -ONDA4VLL IV; -OXYC1TAB23 PO; -PEG1POW PO; -PLAV1TAB2 PO; -POTA10CA PO; -PROTAMINE SULF INJ 50 MG/5 ML VIAL (J2720) As Ordered ONE; -SIMV10TA2 PO; +TRIAMCINOLONE ACETONIDE SUSP 40 MG/ML VIAL (J3301) As Ordered; -ZANA4TAB PO; +diazePAM 5 MG TAB As Ordered; -fentaNYL 100 MCG/2 ML INJECTION (J3010) As Ordered ONE; +oxyCODONE 5MG TAB As Ordered
== END ==
LOC: M PAIN 10:45
DX: G89.29 Other chronic pain (principal); M46.1 Sacroiliitis, not elsewhere classified; I10 Essential (primary) hypertension; E78.00 Pure hypercholesterolemia, unspecified; K21.9 Gastro-esophageal reflux disease without esophagitis; Z79.899 Other long term (current) drug therapy; Z88.0 Allergy status to penicillin; Z88.8 Allergy status to other drugs, medicaments and biological substances
CPT/HCPCS: J3301

== ENCOUNTER → 2017-05-07 | Outpatient (CLI) | payer MEDICARE, MEDICAID ==
[2017-05-07 12:13] LABS: BASO % 0.1 % (0.0-1.0); HEMATOCRIT 39.8 % (36.0-47.0); HEMOGLOBIN 13.3 g/dl (12.0-15.5); IMMATURE GRANULOCYTE % 0.6 % (0-3.0); LYMPH # 1.2 10^3/uL (1.5-4.5); LYMPH % 7.3 % (24.0-44.0); MEAN CORPUSCULAR HEMOGLOBIN 32.4 pg (27.0-33.0); MEAN CORPUSCULAR HGB CONC 33.4 g/dl (32.0-36.5); MEAN CORPUSCULAR VOLUME 97.1 fl (80.0-96.0); MONO # 0.9 10^3/uL (0.0-0.8); MONO % 5.5 % (0.0-5.0); NEUTROPHILS # 13.8 10^3/uL (1.8-7.7); NEUTROPHILS % 86.5 % (36.0-66.0); PLATELET COUNT, AUTOMATED 311 10^3/uL (150-450); RED CELL DISTRIBUTION WIDTH 12.2 % (11.5-14.5); WHITE BLOOD COUNT 15.9 10^3/uL (4.0-10.0)
[2017-05-07 12:20] LABS: REASON FOR REVIEW WBC/LEUKEMIA/BLAST; SLIDE REVIEW Report; SOURCE PERIPHERAL SMEAR
== END ==
LOC: M LAB 11:06
DX: D72.829 Elevated white blood cell count, unspecified (principal)
CPT/HCPCS: 85025

== ENCOUNTER → 2017-05-07 | Outpatient (CLI) | payer MEDICARE, MEDICAID | LOC: M PAIN 09:30 | DX: M46.1 Sacroiliitis, not elsewhere classified (principal); M48.061 Spinal stenosis, lumbar region without neurogenic claudication; I10 Essential (primary) hypertension; E78.00 Pure hypercholesterolemia, unspecified; K21.9 Gastro-esophageal reflux disease without esophagitis; K44.9 Diaphragmatic hernia without obstruction or gangrene; M19.90 Unspecified osteoarthritis, unspecified site; Z79.01 Long term (current) use of anticoagulants; Z79.899 Other long term (current) drug therapy; Z88.0 Allergy status to penicillin; Z88.6 Allergy status to analgesic agent; Z88.8 Allergy status to other drugs, medicaments and biological substances; Z87.891 Personal history of nicotine dependence | CPT/HCPCS: G0463 ==

== ENCOUNTER 2017-05-18 11:05 | Inpatient (IN) | payer MEDICARE, MEDICAID ==
[2017-05-18] MEDS: MIRALAX *UNIT DOSE* 17GM PACKET PO (09:00)
[~2017-05-18 11:05] MED LIST changes: +ACETAMINOPHEN TAB 650MG DOSE (2X325MG) PO; +BISACODYL 10 MG SUPP PR; +BISACODYL 5 MG TAB PO; -BUPIVACAINE HCL 0.25% 30 ML VIAL As Ordered; -ISOVUE-M 300 61% 15ML VIAL (Q9967) As Ordered; -LIDOCAINE 1% SDV INJ 30 ML VIAL As Ordered; +MOM 30ML SUSPENSION UDC PO; +ONDANSETRON 4 MG TAB (S0181) PO; -TRIAMCINOLONE ACETONIDE SUSP 40 MG/ML VIAL (J3301) As Ordered; -diazePAM 5 MG TAB As Ordered; -oxyCODONE 5MG TAB As Ordered
[2017-05-18] MEDS: PERCOCET 5MG/325MG TAB PO ×2 (12:30→20:11)
[2017-05-18] MEDS: MECLIZINE 25 MG TABLET PO ×2 (14:00→22:00)
[2017-05-18] MEDS: NITROFURANTOIN (MACROBID) 100 MG CAP PO (17:37)
[2017-05-18] MEDS: ALBUTEROL 90 MCG/ACT 8GM HFA INHALER INH (18:00)
[2017-05-18] MEDS: CALCIUM CARBONATE 500 MG CHEW U/D PO (18:20)
[2017-05-18] MEDS: SIMVASTATIN 10 MG TAB PO (20:11)
[2017-05-18] MEDS: SENNA 8.6 MG TAB (SENOKOT) PO (20:12)
[2017-05-18] MEDS: DOCUSATE SODIUM 100 MG CAP PO (20:12)
[2017-05-18] MEDS: NYSTATIN 100,000 UNITS/GM TOPICAL PWD 15 GM TOP (22:17)
[2017-05-19] MEDS: PERCOCET 5MG/325MG TAB PO ×3 (02:15→18:21)
[2017-05-19] MEDS: ALBUTEROL 90 MCG/ACT 8GM HFA INHALER INH ×4 (06:00→18:00)
[2017-05-19] MEDS: MECLIZINE 25 MG TABLET PO ×3 (06:00→21:59)
[2017-05-19 07:04] LABS: BASO % 0.2 % (0.0-1.0); EOS # 0.2 10^3/uL (0.0-0.50); EOS % 2.8 % (0.0-3.0); HEMATOCRIT 33.6 % (36.0-47.0); HEMOGLOBIN 11.4 g/dl (12.0-15.5); IMMATURE GRANULOCYTE % 0.4 % (0-3.0); LYMPH # 1.1 10^3/uL (1.5-4.5); LYMPH % 12.8 % (24.0-44.0); MEAN CORPUSCULAR HGB CONC 33.9 g/dl (32.0-36.5); MEAN CORPUSCULAR VOLUME 97.4 fl (80.0-96.0); MONO # 0.6 10^3/uL (0.0-0.8); MONO % 7.1 % (0.0-5.0); NEUTROPHILS # 6.3 10^3/uL (1.8-7.7); NEUTROPHILS % 76.7 % (36.0-66.0); PLATELET COUNT, AUTOMATED 203 10^3/uL (150-450); RED BLOOD COUNT 3.45 10^6/uL (4.00-5.40); RED CELL DISTRIBUTION WIDTH 12.5 % (11.5-14.5); WHITE BLOOD COUNT 8.3 10^3/uL (4.0-10.0)
[2017-05-19 07:25] LABS: ALBUMIN 2.6 GM/DL (3.2-5.2); ALBUMIN/GLOBULIN RATIO 0.76 (1.00-1.93); ALKALINE PHOSPHATASE 83 U/L (45-117); ALT/SGPT 17 U/L (12-78); ANION GAP 7 MEQ/L (8-16); AST/SGOT 11 U/L (7-37); BILIRUBIN,TOTAL 0.9 MG/DL (0.2-1.0); BLOOD UREA NITROGEN 10 MG/DL (7-18); CALCIUM LEVEL 8.6 MG/DL (8.8-10.2); CARBON DIOXIDE LEVEL 30 MEQ/L (21-32); CHLORIDE LEVEL 100 MEQ/L (98-107); CREATININE FOR GFR 0.73 MG/DL (0.55-1.30); GLOMERULAR FILTRATION RATE > 60.0 (>39); GLUCOSE, FASTING 90 MG/DL (70-100); SODIUM LEVEL 137 MEQ/L (136-145)
[2017-05-19 07:34] LABS: POTASSIUM SERUM 2.9 MEQ/L (3.5-5.1)
[2017-05-19 07:59] LABS: MAGNESIUM LEVEL 1.7 MG/DL (1.8-2.4)
[2017-05-19] MEDS: CLOPIDOGREL 75 MG TAB PO (08:49)
[2017-05-19] MEDS: LOSARTAN 50 MG TAB PO (08:49)
[2017-05-19] MEDS: NITROFURANTOIN (MACROBID) 100 MG CAP PO ×2 (08:49→18:21)
[2017-05-19] MEDS: POTASSIUM CHLORIDE 10 MEQ SR TABLET PO ×2 (08:50→11:25)
[2017-05-19] MEDS: hydroCHLOROthiazide 25 MG TAB PO (08:50)
[2017-05-19] MEDS: VITAMIN D 1,000 INTERNATIONAL UNITS TABLET PO (08:50)
[2017-05-19] MEDS: ENOXAPARIN 40 MG/0.4 ML SYRINGE (J1650) SC (08:51)
[2017-05-19] MEDS: DOCUSATE SODIUM 100 MG CAP PO ×2 (08:52→20:40)
[2017-05-19] MEDS: SENNA 8.6 MG TAB (SENOKOT) PO ×2 (08:52→20:40)
[2017-05-19] MEDS: MIRALAX *UNIT DOSE* 17GM PACKET PO (08:52)
[2017-05-19] MEDS: NYSTATIN 100,000 UNITS/GM TOPICAL PWD 15 GM TOP ×2 (08:52→20:40)
[2017-05-19] MEDS: CALCIUM CARBONATE 500 MG CHEW U/D PO ×2 (11:26→18:21)
[2017-05-19] MEDS: OMEPRAZOLE 20 MG CAP PO (20:40)
[2017-05-19] MEDS: SIMVASTATIN 10 MG TAB PO (20:40)
[2017-05-20] MEDS: PERCOCET 5MG/325MG TAB PO ×4 (00:33→19:49)
[2017-05-20] MEDS: MECLIZINE 25 MG TABLET PO ×4 (06:00→20:06)
[2017-05-20] MEDS: ALBUTEROL 90 MCG/ACT 8GM HFA INHALER INH ×4 (06:00→18:00)
[2017-05-20 07:07] LABS: ANION GAP 8 MEQ/L (8-16); BLOOD UREA NITROGEN 9 MG/DL (7-18); CALCIUM LEVEL 8.9 MG/DL (8.8-10.2); CARBON DIOXIDE LEVEL 30 MEQ/L (21-32); CHLORIDE LEVEL 101 MEQ/L (98-107); CREATININE FOR GFR 0.69 MG/DL (0.55-1.30); GLOMERULAR FILTRATION RATE > 60.0 (>39); GLUCOSE, FASTING 86 MG/DL (70-100); POTASSIUM SERUM 3.2 MEQ/L (3.5-5.1); SODIUM LEVEL 139 MEQ/L (136-145)
[2017-05-20] MEDS: DOCUSATE SODIUM 100 MG CAP PO ×2 (08:03→19:33)
[2017-05-20] MEDS: MIRALAX *UNIT DOSE* 17GM PACKET PO (08:05)
[2017-05-20] MEDS: SENNA 8.6 MG TAB (SENOKOT) PO ×2 (08:05→19:34)
[2017-05-20] MEDS: NITROFURANTOIN (MACROBID) 100 MG CAP PO ×2 (08:29→17:50)
[2017-05-20] MEDS: hydroCHLOROthiazide 25 MG TAB PO (08:30)
[2017-05-20] MEDS: VITAMIN D 1,000 INTERNATIONAL UNITS TABLET PO (08:30)
[2017-05-20] MEDS: OMEPRAZOLE 20 MG CAP PO ×2 (08:30→20:05)
[2017-05-20] MEDS: LOSARTAN 50 MG TAB PO (08:30)
[2017-05-20] MEDS: NYSTATIN 100,000 UNITS/GM TOPICAL PWD 15 GM TOP ×2 (08:31→20:06)
[2017-05-20] MEDS: ENOXAPARIN 40 MG/0.4 ML SYRINGE (J1650) SC (08:31)
[2017-05-20] MEDS: PREPARATION H OINTMENT (HEMORRHOID) PR ×2 (08:31→13:05)
[2017-05-20] MEDS: MAG SULF 1GM/100ML (MAG RUN) 1 GM in APPROPRIATE DILUENT 1 EA IV ×2 (10:44→11:50)
[2017-05-20] MEDS ORDERED: SLF 3 ML SYR IV (11:15)
[2017-05-20] MEDS: POTASSIUM CHLORIDE 10 MEQ SR TABLET PO (12:30)
[2017-05-20] MEDS: SLF 3 ML SYR IV ×2 (12:31→20:06)
[2017-05-20] MEDS: SIMVASTATIN 10 MG TAB PO (20:05)
[2017-05-21] MEDS: PERCOCET 5MG/325MG TAB PO ×4 (02:10→21:14)
[2017-05-21] MEDS: SLF 3 ML SYR IV (06:00)
[2017-05-21] MEDS: ALBUTEROL 90 MCG/ACT 8GM HFA INHALER INH ×2 (06:00→12:00)
[2017-05-21 06:56] LABS: HEMATOCRIT 30.5 % (36.0-47.0); HEMOGLOBIN 10.2 g/dl (12.0-15.5); MEAN CORPUSCULAR HEMOGLOBIN 32.1 pg (27.0-33.0); MEAN CORPUSCULAR HGB CONC 33.4 g/dl (32.0-36.5); MEAN CORPUSCULAR VOLUME 95.9 fl (80.0-96.0); PLATELET COUNT, AUTOMATED 239 10^3/uL (150-450); RED BLOOD COUNT 3.18 10^6/uL (4.00-5.40); RED CELL DISTRIBUTION WIDTH 12.5 % (11.5-14.5); WHITE BLOOD COUNT 6.3 10^3/uL (4.0-10.0)
[2017-05-21] MEDS: OMEPRAZOLE 20 MG CAP PO ×2 (08:16→20:25)
[2017-05-21] MEDS: VITAMIN D 1,000 INTERNATIONAL UNITS TABLET PO (08:16)
[2017-05-21] MEDS: hydroCHLOROthiazide 25 MG TAB PO (08:16)
[2017-05-21] MEDS: CLOPIDOGREL 75 MG TAB PO (08:18)
[2017-05-21] MEDS: NITROFURANTOIN (MACROBID) 100 MG CAP PO ×2 (08:18→17:18)
[2017-05-21] MEDS: LOSARTAN 50 MG TAB PO (08:19)
[2017-05-21] MEDS: ENOXAPARIN 40 MG/0.4 ML SYRINGE (J1650) SC (08:19)
[2017-05-21] MEDS: NYSTATIN 100,000 UNITS/GM TOPICAL PWD 15 GM TOP ×2 (08:20→20:28)
[2017-05-21] MEDS: SENNA 8.6 MG TAB (SENOKOT) PO ×2 (08:43→20:26)
[2017-05-21] MEDS: DOCUSATE SODIUM 100 MG CAP PO ×2 (08:43→20:26)
[2017-05-21] MEDS: MIRALAX *UNIT DOSE* 17GM PACKET PO (08:43)
[2017-05-21] MEDS ORDERED: MECLIZINE 25 MG TABLET PO (10:15)
[2017-05-21] MEDS: POTASSIUM CHLORIDE 10 MEQ SR TABLET PO (10:50)
[2017-05-21] MEDS: MAGNESIUM OXIDE 400 MG TAB (MAG-OX) PO (10:50)
[2017-05-21] MEDS: SIMVASTATIN 10 MG TAB PO (20:25)
[2017-05-21] MEDS: TAMSULOSIN 0.4 MG CAP PO (20:25)
[2017-05-22] MEDS: PERCOCET 5MG/325MG TAB PO ×4 (03:20→20:55)
[2017-05-22] MEDS: ALBUTEROL 90 MCG/ACT 8GM HFA INHALER INH ×4 (06:00→18:00)
[2017-05-22] MEDS: OMEPRAZOLE 20 MG CAP PO ×2 (08:33→20:54)
[2017-05-22] MEDS: POTASSIUM CHLORIDE 10 MEQ SR TABLET PO (08:34)
[2017-05-22] MEDS: MAGNESIUM OXIDE 400 MG TAB (MAG-OX) PO (08:34)
[2017-05-22] MEDS: NITROFURANTOIN (MACROBID) 100 MG CAP PO ×2 (08:34→18:28)
[2017-05-22] MEDS: VITAMIN D 1,000 INTERNATIONAL UNITS TABLET PO (08:34)
[2017-05-22] MEDS: LOSARTAN 50 MG TAB PO (08:35)
[2017-05-22] MEDS: MIRALAX *UNIT DOSE* 17GM PACKET PO (08:35)
[2017-05-22] MEDS: hydroCHLOROthiazide 25 MG TAB PO (08:35)
[2017-05-22] MEDS: SENNA 8.6 MG TAB (SENOKOT) PO (08:35)
[2017-05-22] MEDS: ENOXAPARIN 40 MG/0.4 ML SYRINGE (J1650) SC (08:36)
[2017-05-22] MEDS: NYSTATIN 100,000 UNITS/GM TOPICAL PWD 15 GM TOP ×2 (08:36→20:57)
[2017-05-22] MEDS: DOCUSATE SODIUM 100 MG CAP PO ×2 (08:44→20:54)
[2017-05-22] MEDS: BISACODYL 5 MG TAB PO (12:31)
[2017-05-22] MEDS: TAMSULOSIN 0.4 MG CAP PO (20:54)
[2017-05-22] MEDS: SIMVASTATIN 10 MG TAB PO (20:54)
[2017-05-23] MEDS: ALBUTEROL 90 MCG/ACT 8GM HFA INHALER INH ×5 (06:00→23:07)
[2017-05-23] MEDS: PERCOCET 5MG/325MG TAB PO ×3 (07:01→21:11)
[2017-05-23 07:31] LABS: BASO % 0.3 % (0.0-1.0); EOS # 0.3 10^3/uL (0.0-0.50); EOS % 3.9 % (0.0-3.0); HEMATOCRIT 34.4 % (36.0-47.0); HEMOGLOBIN 11.6 g/dl (12.0-15.5); IMMATURE GRANULOCYTE % 0.3 % (0-3.0); LYMPH # 0.7 10^3/uL (1.5-4.5); MEAN CORPUSCULAR HEMOGLOBIN 32.7 pg (27.0-33.0); MEAN CORPUSCULAR HGB CONC 33.7 g/dl (32.0-36.5); MEAN CORPUSCULAR VOLUME 96.9 fl (80.0-96.0); MONO # 0.7 10^3/uL (0.0-0.8); MONO % 10.9 % (0.0-5.0); NEUTROPHILS # 4.9 10^3/uL (1.8-7.7); NEUTROPHILS % 74.6 % (36.0-66.0); PLATELET COUNT, AUTOMATED 259 10^3/uL (150-450); RED BLOOD COUNT 3.55 10^6/uL (4.00-5.40); RED CELL DISTRIBUTION WIDTH 12.5 % (11.5-14.5); WHITE BLOOD COUNT 6.6 10^3/uL (4.0-10.0)
[2017-05-23 07:55] LABS: ANION GAP 8 MEQ/L (8-16); BLOOD UREA NITROGEN 8 MG/DL (7-18); CALCIUM LEVEL 8.4 MG/DL (8.8-10.2); CARBON DIOXIDE LEVEL 30 MEQ/L (21-32); CHLORIDE LEVEL 102 MEQ/L (98-107); CREATININE FOR GFR 0.77 MG/DL (0.55-1.30); GLOMERULAR FILTRATION RATE > 60.0 (>39); GLUCOSE, FASTING 104 MG/DL (70-100); MAGNESIUM LEVEL 1.8 MG/DL (1.8-2.4); POTASSIUM SERUM 3.6 MEQ/L (3.5-5.1); SODIUM LEVEL 140 MEQ/L (136-145)
[2017-05-23] MEDS: ENOXAPARIN 40 MG/0.4 ML SYRINGE (J1650) SC (08:28)
[2017-05-23] MEDS: POTASSIUM CHLORIDE 10 MEQ SR TABLET PO (08:29)
[2017-05-23] MEDS: CLOPIDOGREL 75 MG TAB PO (08:29)
[2017-05-23] MEDS: MIRALAX *UNIT DOSE* 17GM PACKET PO (08:29)
[2017-05-23] MEDS: VITAMIN D 1,000 INTERNATIONAL UNITS TABLET PO (08:29)
[2017-05-23] MEDS: hydroCHLOROthiazide 25 MG TAB PO (08:29)
[2017-05-23] MEDS: DOCUSATE SODIUM 100 MG CAP PO ×2 (08:29→21:10)
[2017-05-23] MEDS: NYSTATIN 100,000 UNITS/GM TOPICAL PWD 15 GM TOP ×2 (08:29→21:00)
[2017-05-23] MEDS: OMEPRAZOLE 20 MG CAP PO ×2 (08:29→21:10)
[2017-05-23] MEDS: MAGNESIUM OXIDE 400 MG TAB (MAG-OX) PO (08:29)
[2017-05-23] MEDS: LOSARTAN 50 MG TAB PO (08:30)
[2017-05-23 12:43] LABS: AMORPHOUS SEDIMENT RFX SMALL (NEGATIVE); KETONE, URINE AUTO RFX TRACE mg/dL (NEGATIVE); MUCUS, URINE RFX SMALL (NEGATIVE); NITRITE, URINE AUTO RFX NEGATIVE (NEGATIVE); RBC, URINE AUTO RFX 3 /HPF (0-3); SQUAM EPITHELIAL CELL UR AURFX 5 /HPF (0-6); WBC, URINE AUTO RFX 7 /HPF (0-3)
[2017-05-23 12:44] LABS: LEUKOCYTE ESTERASE UR AUTO RFX 1+ (NEGATIVE)
[2017-05-23] MEDS: SIMVASTATIN 10 MG TAB PO (21:10)
[2017-05-23] MEDS: TAMSULOSIN 0.4 MG CAP PO (21:10)
[2017-05-24] MEDS: PERCOCET 5MG/325MG TAB PO ×4 (03:14→21:29)
[2017-05-24] MEDS: ALBUTEROL 90 MCG/ACT 8GM HFA INHALER INH ×4 (06:00→23:49)
[2017-05-24] MEDS: DOCUSATE SODIUM 100 MG CAP PO ×2 (08:46→21:28)
[2017-05-24] MEDS: VITAMIN D 1,000 INTERNATIONAL UNITS TABLET PO (08:46)
[2017-05-24] MEDS: OMEPRAZOLE 20 MG CAP PO ×2 (08:46→21:28)
[2017-05-24] MEDS: MIRALAX *UNIT DOSE* 17GM PACKET PO (08:46)
[2017-05-24] MEDS: hydroCHLOROthiazide 25 MG TAB PO (08:47)
[2017-05-24] MEDS: MAGNESIUM OXIDE 400 MG TAB (MAG-OX) PO (08:47)
[2017-05-24] MEDS: NYSTATIN 100,000 UNITS/GM TOPICAL PWD 15 GM TOP ×2 (08:48→21:00)
[2017-05-24] MEDS: ENOXAPARIN 40 MG/0.4 ML SYRINGE (J1650) SC (08:48)
[2017-05-24] MEDS: LOSARTAN 50 MG TAB PO (08:48)
[2017-05-24] MEDS: SIMVASTATIN 10 MG TAB PO (21:28)
[2017-05-24] MEDS: TAMSULOSIN 0.4 MG CAP PO (21:28)
[2017-05-25] MEDS: PERCOCET 5MG/325MG TAB PO ×2 (03:56→10:05)
[2017-05-25] MEDS: ALBUTEROL 90 MCG/ACT 8GM HFA INHALER INH (06:00)
[2017-05-25] MEDS: DOCUSATE SODIUM 100 MG CAP PO (08:46)
[2017-05-25] MEDS: hydroCHLOROthiazide 25 MG TAB PO (08:46)
[2017-05-25] MEDS: CLOPIDOGREL 75 MG TAB PO (08:46)
[2017-05-25] MEDS: OMEPRAZOLE 20 MG CAP PO (08:46)
[2017-05-25] MEDS: POTASSIUM CHLORIDE 10 MEQ SR TABLET PO (08:46)
[2017-05-25] MEDS: LOSARTAN 50 MG TAB PO (08:47)
[2017-05-25] MEDS: MAGNESIUM OXIDE 400 MG TAB (MAG-OX) PO (08:47)
[2017-05-25] MEDS: MIRALAX *UNIT DOSE* 17GM PACKET PO (08:47)
[2017-05-25] MEDS: VITAMIN D 1,000 INTERNATIONAL UNITS TABLET PO (08:47)
[2017-05-25] MEDS: NYSTATIN 100,000 UNITS/GM TOPICAL PWD 15 GM TOP (08:48)
== END 2017-05-25 10:30 | disposition home or self-care (01) | DRG 560 ==
LOC: M PM&R 11:05
DX: M80.08XD Age-related osteoporosis with current pathological fracture, vertebra(e), subsequent encounter for fracture with routine healing (principal); G83.4 Cauda equina syndrome; N39.0 Urinary tract infection, site not specified; I10 Essential (primary) hypertension; K21.9 Gastro-esophageal reflux disease without esophagitis; J44.9 Chronic obstructive pulmonary disease, unspecified; I73.9 Peripheral vascular disease, unspecified; E78.5 Hyperlipidemia, unspecified; K57.90 Diverticulosis of intestine, part unspecified, without perforation or abscess without bleeding; K44.9 Diaphragmatic hernia without obstruction or gangrene; B37.2 Candidiasis of skin and nail; E87.6 Hypokalemia; E83.42 Hypomagnesemia; M48.00 Spinal stenosis, site unspecified; K64.8 Other hemorrhoids; Z79.02 Long term (current) use of antithrombotics/antiplatelets; Z79.899 Other long term (current) drug therapy; Z88.0 Allergy status to penicillin; Z88.6 Allergy status to analgesic agent; Z88.8 Allergy status to other drugs, medicaments and biological substances; Z86.718 Personal history of other venous thrombosis and embolism; Y93.E8 Activity, other personal hygiene

== ENCOUNTER → 2017-07-16 | Outpatient (REF) | payer MEDICARE, MEDICAID ==
[2017-07-16 13:17] LABS: BASO % 0.4 % (0.0-1.0); EOS # 0.4 10^3/uL (0.0-0.50); EOS % 5.1 % (0.0-3.0); HEMATOCRIT 32.2 % (36.0-47.0); HEMOGLOBIN 11.2 g/dl (12.0-15.5); IMMATURE GRANULOCYTE % 0.5 % (0-3.0); LYMPH # 1.5 10^3/uL (1.5-4.5); LYMPH % 18.2 % (24.0-44.0); MEAN CORPUSCULAR HEMOGLOBIN 32.7 pg (27.0-33.0); MEAN CORPUSCULAR HGB CONC 34.8 g/dl (32.0-36.5); MEAN CORPUSCULAR VOLUME 94.2 fl (80.0-96.0); MONO # 0.6 10^3/uL (0.0-0.8); MONO % 7.2 % (0.0-5.0); NEUTROPHILS # 5.8 10^3/uL (1.8-7.7); NEUTROPHILS % 68.6 % (36.0-66.0); PLATELET COUNT, AUTOMATED 307 10^3/uL (150-450); RED BLOOD COUNT 3.42 10^6/uL (4.00-5.40); RED CELL DISTRIBUTION WIDTH 14.4 % (11.5-14.5); WHITE BLOOD COUNT 8.5 10^3/uL (4.0-10.0)
[2017-07-16 13:48] LABS: ALBUMIN/GLOBULIN RATIO 0.86 (1.00-1.93); ALKALINE PHOSPHATASE 95 U/L (45-117); ALT/SGPT 13 U/L (12-78); ANION GAP 9 MEQ/L (8-16); AST/SGOT 10 U/L (7-37); BILIRUBIN,TOTAL 0.4 MG/DL (0.2-1.0); BLOOD UREA NITROGEN 16 MG/DL (7-18); CARBON DIOXIDE LEVEL 26 MEQ/L (21-32); CHLORIDE LEVEL 106 MEQ/L (98-107); GLOMERULAR FILTRATION RATE 42.5 (>39); GLUCOSE, FASTING 97 MG/DL (70-100); POTASSIUM SERUM 3.3 MEQ/L (3.5-5.1); SODIUM LEVEL 141 MEQ/L (136-145); TOTAL PROTEIN 6.5 GM/DL (6.4-8.2)
== END ==
LOC: M LAB REF 11:53
DX: R60.9 Edema, unspecified (principal); M80.08XD Age-related osteoporosis with current pathological fracture, vertebra(e), subsequent encounter for fracture with routine healing
CPT/HCPCS: 80053

== ENCOUNTER → 2017-08-10 | Outpatient (CLI) | payer MEDICARE, MEDICAID | LOC: M PLARAD 07:44 | DX: M54.5 Low back pain (principal) | CPT/HCPCS: 72148 ==

== ENCOUNTER → 2017-08-31 | Outpatient (CLI) | payer MEDICARE, MEDICAID | LOC: M PLARAD 11:46 | DX: S32.030D Wedge compression fracture of third lumbar vertebra, subsequent encounter for fracture with routine healing (principal); X58.XXXD Exposure to other specified factors, subsequent encounter; Y92.9 Unspecified place or not applicable ==

== ENCOUNTER → 2017-10-09 | Outpatient (CLI) | payer MEDICARE, MEDICAID ==
[2017-10-09 16:50] LABS: ANION GAP 12 MEQ/L (8-16); BLOOD UREA NITROGEN 11 MG/DL (7-18); CALCIUM LEVEL 9.3 MG/DL (8.8-10.2); CARBON DIOXIDE LEVEL 23 MEQ/L (21-32); CHLORIDE LEVEL 107 MEQ/L (98-107); CREATININE FOR GFR 0.89 MG/DL (0.55-1.30); GLOMERULAR FILTRATION RATE > 60.0 (>39); GLUCOSE, FASTING 84 MG/DL (70-100); POTASSIUM SERUM 4.2 MEQ/L (3.5-5.1); SODIUM LEVEL 142 MEQ/L (136-145)
[2017-10-09 17:50] LABS: TOTAL 25(OH) VITAMIN D 51.8 NG/ML (30.0-100.0)
== END ==
LOC: M WUC 12:44
DX: M80.0 Age-related osteoporosis with current pathological fracture (principal)
CPT/HCPCS: 82306

== ENCOUNTER → 2017-10-17 | Outpatient (CLI) | payer MEDICARE, MEDICAID ==
[2017-10-17 11:06] LABS: ANION GAP 6 MEQ/L (8-16); BLOOD UREA NITROGEN 11 MG/DL (7-18); CALCIUM LEVEL 9.4 MG/DL (8.8-10.2); CARBON DIOXIDE LEVEL 28 MEQ/L (21-32); CHLORIDE LEVEL 105 MEQ/L (98-107); CREATININE FOR GFR 0.87 MG/DL (0.55-1.30); GLOMERULAR FILTRATION RATE > 60.0 (>39); GLUCOSE, FASTING 84 MG/DL (70-100); POTASSIUM SERUM 4.3 MEQ/L (3.5-5.1); SODIUM LEVEL 139 MEQ/L (136-145)
== END ==
LOC: M LAB 09:11
DX: M17.11 Unilateral primary osteoarthritis, right knee (principal); R93.7 Abnormal findings on diagnostic imaging of other parts of musculoskeletal system
CPT/HCPCS: 73564

== ENCOUNTER → 2017-11-09 | Outpatient (CLI) | payer MEDICARE, OTHER, MEDICAID | LOC: M RAD 07:22 | DX: I70.293 Other atherosclerosis of native arteries of extremities, bilateral legs (principal); I72.4 Aneurysm of artery of lower extremity | CPT/HCPCS: 93925 ==

== ENCOUNTER → 2017-12-31 | Outpatient (CLI) | payer MEDICARE, OTHER ==
[2017-12-31 12:37] LABS: ANION GAP 9 MEQ/L (8-16); BLOOD UREA NITROGEN 14 MG/DL (7-18); CALCIUM LEVEL 8.9 MG/DL (8.8-10.2); CARBON DIOXIDE LEVEL 26 MEQ/L (21-32); CHLORIDE LEVEL 103 MEQ/L (98-107); CREATININE FOR GFR 0.89 MG/DL (0.55-1.30); GLOMERULAR FILTRATION RATE > 60.0 (>39); GLUCOSE, FASTING 75 MG/DL (70-100); POTASSIUM SERUM 4.4 MEQ/L (3.5-5.1); SODIUM LEVEL 138 MEQ/L (136-145)
== END ==
LOC: M LAB 10:01
DX: Z01.818 Encounter for other preprocedural examination (principal); G56.01 Carpal tunnel syndrome, right upper limb; G56.21 Lesion of ulnar nerve, right upper limb; I10 Essential (primary) hypertension
CPT/HCPCS: 93005

== ENCOUNTER → 2017-12-31 | Outpatient (CLI) | payer MEDICARE, OTHER ==
[2017-12-31 10:50] LABS: BASO % 0.5 % (0.0-1.0); EOS # 0.4 10^3/uL (0.0-0.50); EOS % 4.4 % (0.0-3.0); HEMATOCRIT 36.5 % (36.0-47.0); HEMOGLOBIN 12.3 g/dl (12.0-15.5); IMMATURE GRANULOCYTE % 0.2 % (0-3.0); LYMPH # 1.6 10^3/uL (1.5-4.5); LYMPH % 18.7 % (24.0-44.0); MEAN CORPUSCULAR HEMOGLOBIN 33.2 pg (27.0-33.0); MEAN CORPUSCULAR HGB CONC 33.7 g/dl (32.0-36.5); MEAN CORPUSCULAR VOLUME 98.6 fl (80.0-96.0); MONO # 0.7 10^3/uL (0.0-0.8); MONO % 8.4 % (0.0-5.0); NEUTROPHILS # 5.9 10^3/uL (1.8-7.7); NEUTROPHILS % 67.8 % (36.0-66.0); PLATELET COUNT, AUTOMATED 301 10^3/uL (150-450); RED CELL DISTRIBUTION WIDTH 12.6 % (11.5-14.5); WHITE BLOOD COUNT 8.7 10^3/uL (4.0-10.0)
[2017-12-31 12:39] LABS: ALBUMIN 3.5 GM/DL (3.2-5.2); ALBUMIN/GLOBULIN RATIO 0.92 (1.00-1.93); ALKALINE PHOSPHATASE 83 U/L (45-117); ALT/SGPT 15 U/L (12-78); ANION GAP 8 MEQ/L (8-16); AST/SGOT 12 U/L (7-37); BILIRUBIN,TOTAL 0.5 MG/DL (0.2-1.0); BLOOD UREA NITROGEN 13 MG/DL (7-18); CALCIUM LEVEL 8.9 MG/DL (8.8-10.2); CARBON DIOXIDE LEVEL 27 MEQ/L (21-32); CHLORIDE LEVEL 104 MEQ/L (98-107); CREATININE FOR GFR 0.88 MG/DL (0.55-1.30); GLOMERULAR FILTRATION RATE > 60.0 (>39); GLUCOSE, FASTING 75 MG/DL (70-100); POTASSIUM SERUM 4.5 MEQ/L (3.5-5.1); SODIUM LEVEL 139 MEQ/L (136-145); TOTAL PROTEIN 7.3 GM/DL (6.4-8.2)
== END ==
LOC: M LAB 09:57
DX: Z01.812 Encounter for preprocedural laboratory examination (principal)

== ENCOUNTER → 2018-04-08 | Outpatient (CLI) | payer MEDICARE, OTHER ==
[~2018-04-08] MED LIST changes: -ACETAMINOPHEN TAB 650MG DOSE (2X325MG) PO; +ACTO150T PO; +ALBU17IN INH; -BISACODYL 10 MG SUPP PR; -BISACODYL 5 MG TAB PO; +DOCU100C16 PO; +FLEEENE4 PR; +FLOM0.4C39 PO; +HYDR25TAB PO; +KLOR10TA76 PO; +LOSA100T50 PO; +LOVE1INJ SC; +MAG400TA PO; +MAPA325T2 PO; +MECL-68 PO; -MOM 30ML SUSPENSION UDC PO; +NITR-67 PO; +NORCOTAB PO; +NYST10PW TOP; +NYST1POW9 TOP; +OMEP20CA3 PO; +ONDA4VLL IV; -ONDANSETRON 4 MG TAB (S0181) PO; +OXYC1TAB23 PO; +PEG1POW PO; +PLAV1TAB2 PO; +PREPOI PR; +RISE1TAB PO; +SENN1TAB10 PO; +SIMV10TA2 PO; +TUMS500C PO; +TYLE325T5 PO; +VITA-122 PO; +ZANA4TAB PO
--- NOTE | 2018-04-08 15:31 | REP ---
Right lower extremity duplex artery ultrasound: Peak Systolic Phasicity Velocity CORK INSULATOR HELPER 223 cm/sec biphasic Profunda 166 cm/sec biphasic SFA prox 205 cm/sec biphasic SFA mid 118 cm/sec biphasic SFA dist 70 cm/sec biphasic Pop 59 cm/sec biphasic TITO prox 24.2 cm/sec biphasic Tib/P tr 122 cm/sec biphasic RECRUITING CONSULTANT pr 94.1 cm/sec biphasic RECRUITING CONSULTANT dst 87 cm/sec biphasic TITO dst 47 cm/sec half ? biphasic Brachial artery peak systole 180 Preop dorsalis pedis peak systole 162 RECRUITING CONSULTANT peak systole 172. MIGUELITO 0.96 Dorsalis pedis and RECRUITING CONSULTANT are noncompressible. The patient has a known right popliteal artery aneurysm with an endovascular stent. The popliteal artery is difficult to visualize because of acoustic shadowing by the stent. There is moderate plaque throughout the right lower extremity. There is stenosis from the SFA to the right tibial trunk. Left lower extremity duplex artery ultrasound: Peak Systolic Phasicity Velocity CORK INSULATOR HELPER 170 cm/sec biphasic Profunda 149 cm/sec biphasic SFA prox 195 cm/sec biphasic SFA mid 171 cm/sec biphasic SFA dist 130 cm/sec biphasic Pop 54 cm/sec biphasic TITO prox 72 cm/sec biphasic Tib/P tr 71 cm/sec biphasic RECRUITING CONSULTANT pr 80 cm/sec biphasic RECRUITING CONSULTANT dst 110 cm/sec biphasic TITO dst 83 cm/sec biphasic Brachial artery peak systole 172. Dorsalis pedis peak systole 148 RECRUITING CONSULTANT peak systole 164. MIGUELITO 0.91 The dorsalis pedis and RECRUITING CONSULTANT are noncompressible. There is mild to moderate plaquing throughout the left lower extremity. There is mild stenosis from the left SFA to the left popliteal artery. Electronically Signed by Solo Ratliff MD 04/08/2018 03:23 P
== END ==
LOC: M RAD 09:18
PROVIDERS: ATTEND Surgery Vascular Surgery
DX: I70.293 Other atherosclerosis of native arteries of extremities, bilateral legs (principal); Z95.828 Presence of other vascular implants and grafts

== ENCOUNTER → 2018-04-22 | Outpatient (CLI) | payer MEDICARE, OTHER ==
[2018-04-22 14:51] LABS: BASO # 0.1 10^3/uL (0.0-0.2); BASO % 0.6 % (0.0-1.0); EOS # 0.3 10^3/uL (0.0-0.50); HEMOGLOBIN 13.2 g/dl (12.0-15.5); LYMPH # 1.8 10^3/uL (1.5-4.5); LYMPH % 21.8 % (24.0-44.0); MEAN CORPUSCULAR HEMOGLOBIN 32.6 pg (27.0-33.0); MEAN CORPUSCULAR HGB CONC 33.8 g/dl (32.0-36.5); MEAN CORPUSCULAR VOLUME 96.3 fl (80.0-96.0); MONO # 0.7 10^3/uL (0.0-0.8); MONO % 8.8 % (0.0-5.0); NEUTROPHILS # 5.3 10^3/uL (1.8-7.7); NEUTROPHILS % 64.4 % (36.0-66.0); PLATELET COUNT, AUTOMATED 289 10^3/uL (150-450); RED BLOOD COUNT 4.05 10^6/uL (4.00-5.40); WHITE BLOOD COUNT 8.3 10^3/uL (4.0-10.0)
[2018-04-22 15:03] LABS: BLOOD UREA NITROGEN 15 MG/DL (7-18); CALCIUM LEVEL 9.1 MG/DL (8.8-10.2); CARBON DIOXIDE LEVEL 29 MEQ/L (21-32); CHLORIDE LEVEL 103 MEQ/L (98-107); CREATININE FOR GFR 0.92 MG/DL (0.55-1.30); GLOMERULAR FILTRATION RATE > 60.0 (>39); GLUCOSE, FASTING 93 MG/DL (70-100); SODIUM LEVEL 137 MEQ/L (136-145)
== END ==
LOC: M LAB 14:16
PROVIDERS: ATTEND Surgery Vascular Surgery
DX: I70.293 Other atherosclerosis of native arteries of extremities, bilateral legs (principal); Z87.891 Personal history of nicotine dependence; I70.212 Atherosclerosis of native arteries of extremities with intermittent claudication, left leg

== ENCOUNTER → 2018-04-26 | Outpatient (CLI) | payer MEDICARE, OTHER ==
[~2018-04-26] MED LIST changes: +ACETAMINOPHEN 325 MG TAB As Ordered ONE; +HEPARIN 1,000 UNITS/ML 10ML VIAL (FOR RADIOLOGY& DIALYSIS ONLY) As Ordered ONE; +HYDR-2541 PO; +HYDR-3715 PO; +ISOVUE-300 61% 50ML VIAL (Q9967) As Ordered ONE; +LIDOCAINE 2% MDV 20 ML VIAL As Ordered ONE; +MIDAZOLAM INJ 2 MG/2 ML VIAL (J2250) As Ordered ONE; -NORCOTAB PO; +NYST-15 TOP; -NYST10PW TOP; +PROTAMINE SULF INJ 50 MG/5 ML VIAL (J2720) As Ordered ONE; +diphenhydrAMINE INJ 50MG/ML VIAL (J1200) As Ordered ONE; +fentaNYL 100 MCG/2 ML INJECTION (J3010) As Ordered ONE
--- NOTE | 2018-05-08 12:00 | REPIR ---
DATE OF PROCEDURE: 04/26/2018 PREOPERATIVE DIAGNOSES: Right popliteal artery aneurysm, bilateral lower extremity pain. POSTOPERATIVE DIAGNOSES: Right popliteal artery aneurysm, bilateral lower extremity pain. PROCEDURE: Aortogram, iliofemoral angiogram, selective right common femoral artery catheter placement right lower extremity angiogram, selective right superficial femoral artery catheter placement right lower extremity angiogram, MYNX closure of the left common femoral arteriotomy. SURGEON: Dr. Rylee Goode. PARQUETRY FLOOR LAYER: Guillermina Kelley and Luisa Salazar. ANESTHESIA: Local with 10 mL of 2% lidocaine. FLUORO TIME: 1.5 minutes. CONTRAST: 50.5 mL HEPARIN: None. COMPLICATIONS: None. DRAINS: None. SPECIMEN: None. INDICATION: The patient is 77-year female who has a previous repair of a right popliteal artery aneurysm and has continued pain in the right lower extremity. The patient will undergo an angiogram with possible angioplasty stent and/or atherectomy. Risks, benefits and alternative options discussed with the patient. DESCRIPTION OF PROCEDURE: The patient was taken to the angiography suite, placed supine on the angiography room table and then prepped and draped in a standard surgical fashion. The left common femoral artery was cannulated. The catheter placed in the aorta and aortogram was performed and iliofemoral angiogram was performed as well as selective right common femoral superficial and femoral artery angiography showing no intervention was required. Catheters and wires were removed. The sheath was removed and a MYNX closure device used close the arteriotomy in the left common femoral artery with an additional 10 minutes of adjunctive pressure applied for hemostasis. Dressings were then applied. The patient tolerated the procedure well. All instrument, sponge and needle counts were correct at the end of the case. There were no complications. Dr. Goode was present for directed the entire case. The patient was [facility] and subsequent discharged in stable condition.
== END | disposition home or self-care (01) ==
LOC: M IRPRO 06:19
PROVIDERS: ATTEND Surgery Vascular Surgery
DX: I72.4 Aneurysm of artery of lower extremity (principal); M79.662 Pain in left lower leg; M79.661 Pain in right lower leg
CPT/HCPCS: 36247; 75710; C1760; C1769; C1887; C1894; G0269; Q9967

== ENCOUNTER → 2018-11-14 | Outpatient (CLI) | payer MEDICARE, MEDICAID ==
[~2018-11-14] MED LIST changes: -ACETAMINOPHEN 325 MG TAB As Ordered ONE; -HEPARIN 1,000 UNITS/ML 10ML VIAL (FOR RADIOLOGY& DIALYSIS ONLY) As Ordered ONE; -ISOVUE-300 61% 50ML VIAL (Q9967) As Ordered ONE; -LIDOCAINE 2% MDV 20 ML VIAL As Ordered ONE; -MIDAZOLAM INJ 2 MG/2 ML VIAL (J2250) As Ordered ONE; -OMEP20CA3 PO; +OMEP20CA4 PO; -PROTAMINE SULF INJ 50 MG/5 ML VIAL (J2720) As Ordered ONE; +RISE150T PO; -RISE1TAB PO; -diphenhydrAMINE INJ 50MG/ML VIAL (J1200) As Ordered ONE; -fentaNYL 100 MCG/2 ML INJECTION (J3010) As Ordered ONE
--- NOTE | 2018-11-14 10:47 | REP ---
Right lower extremity arterial duplex ultrasound: Brachial peak flow velocity: 190 mmHg. Dorsalis pedis peak flow velocity: 210 mmHg AUTOMATIC VULCANIZING LEAD OPERATOR peak flow velocity: 206 mmHg MIGUELITO: 1.1. Peak Systolic Phasicity Velocity DURALUMIN MECHANIC the 222 biphasic Profunda 164 biphasic SFA prox 164 biphasic SFA mid 160 C biphasic SFA dist one biphasic Pop 69.1 biphasic TITO prox 80.8 biphasic Tib/P tr 71.8 biphasic AUTOMATIC VULCANIZING LEAD OPERATOR pr 40.4 biphasic AUTOMATIC VULCANIZING LEAD OPERATOR dst 78.3 biphasic TITO dst 29.5 biphasic Left lower extremity arterial duplex ultrasound: Brachial peak flow velocity: 200 mmHg. Dorsalis pedis peak flow velocity: One hernia millimeters of mercury. AUTOMATIC VULCANIZING LEAD OPERATOR peak flow velocity: One hernia millimeters of mercury. MIGUELITO: 0.9. Peak Systolic Phasicity Velocity DURALUMIN MECHANIC 114 biphasic Profunda 136 biphasic SFA prox 151 biphasic SFA mid 217 biphasic SFA dist 161 biphasic Pop 102 biphasic TITO prox 32 biphasic Tib/P tr -- -- AUTOMATIC VULCANIZING LEAD OPERATOR pr 35.4 biphasic AUTOMATIC VULCANIZING LEAD OPERATOR dst 111 biphasic TITO dst 42.4 biphasic There is moderately severe atheromatous plaque bilaterally. The patient has known right popliteal artery endovascular stent. Because of acoustic shadowing, we are unable to visualize the stent lumen by ultrasound, however, there is vascular flow in the distal femoral artery above the stent and in the popliteal artery below the stent. No collateral flow is identified. Therefore, it is assumed there that the stent is patent. No significant stenoses are identified. There is mild stenosis in the right common femoral artery. There is mild stenosis in the left mid femoral artery. There is biphasic flow throughout both lower extremities. Electronically Signed by Solo Ratliff MD 11/14/2018 10:39 A
== END ==
LOC: M RAD 08:35
PROVIDERS: ATTEND Physician Assistant
DX: I70.293 Other atherosclerosis of native arteries of extremities, bilateral legs (principal); Z95.820 Peripheral vascular angioplasty status with implants and grafts

== ENCOUNTER → 2018-12-23 | Outpatient (CLI) | payer MEDICARE, MEDICAID ==
[2018-12-23 09:13] LABS: HEMATOCRIT 39.1 % (36.0-47.0); HEMOGLOBIN 12.9 g/dl (12.0-15.5); PLATELET COUNT, AUTOMATED 288 10^3/uL (150-450); RED BLOOD COUNT 3.91 10^6/uL (4.00-5.40); WHITE BLOOD COUNT 9.2 10^3/uL (4.0-10.0)
[2018-12-23 10:03] LABS: ALBUMIN 3.7 GM/DL (3.2-5.2); ALT/SGPT 23 U/L (12-78); BILIRUBIN,TOTAL 0.4 MG/DL (0.2-1.0); BLOOD UREA NITROGEN 12 MG/DL (7-18); CALCIUM LEVEL 9.3 MG/DL (8.8-10.2); CARBON DIOXIDE LEVEL 30 MEQ/L (21-32); CHLORIDE LEVEL 103 MEQ/L (98-107); CHOLESTEROL LEVEL 172 MG/DL (<200); CHOLESTEROL RISK RATIO 2.388 (<5); CREATININE FOR GFR 0.93 MG/DL (0.55-1.30); GLOMERULAR FILTRATION RATE > 60.0 (>39); GLUCOSE, FASTING 110 MG/DL (70-100); HDL CHOLESTEROL 72 MG/DL (>40); LDL CHOLESTEROL 81 MG/DL (<100); NON-HDL-C 100 MG/DL; POTASSIUM SERUM 4.5 MEQ/L (3.5-5.1); SODIUM LEVEL 138 MEQ/L (136-145); TOTAL PROTEIN 7.2 GM/DL (6.4-8.2); TRIGLYCERIDES LEVEL 94 MG/DL (<150)
[2018-12-23 10:12] LABS: TOTAL 25(OH) VITAMIN D 42.3 NG/ML (30.0-100.0)
== END ==
LOC: M LAB 08:28
PROVIDERS: ATTEND Family Medicine
DX: E55.9 Vitamin D deficiency, unspecified (principal); I10 Essential (primary) hypertension

== ENCOUNTER → 2019-03-20 | Outpatient (CLI) | payer MEDICARE, MEDICAID ==
[~2019-03-20] MED LIST changes: -MECL-68 PO; +MECL1TAB31 PO; +OMEP1CAP73 PO; -OMEP20CA4 PO; -SIMV10TA2 PO; +SIMV10TA21 PO
[2019-03-20 12:48] LABS: HEMATOCRIT 38.5 % (36.0-47.0); HEMOGLOBIN 12.9 g/dl (12.0-15.5); MEAN CORPUSCULAR HEMOGLOBIN 32.7 pg (27.0-33.0); MEAN CORPUSCULAR HGB CONC 33.5 g/dl (32.0-36.5); MEAN CORPUSCULAR VOLUME 97.5 fl (80.0-96.0); PLATELET COUNT, AUTOMATED 297 10^3/uL (150-450); RED BLOOD COUNT 3.95 10^6/uL (4.00-5.40); WHITE BLOOD COUNT 10.4 10^3/uL (4.0-10.0)
[2019-03-20 13:13] LABS: ALBUMIN 3.8 GM/DL (3.2-5.2); ALT/SGPT 16 U/L (12-78); BILIRUBIN,TOTAL 0.8 MG/DL (0.2-1.0); BLOOD UREA NITROGEN 11 MG/DL (7-18); CARBON DIOXIDE LEVEL 30 MEQ/L (21-32); CHLORIDE LEVEL 100 MEQ/L (98-107); CREATININE FOR GFR 0.91 MG/DL (0.55-1.30); GLOMERULAR FILTRATION RATE > 60.0 (>39); GLUCOSE, FASTING 105 MG/DL (70-100); SODIUM LEVEL 137 MEQ/L (136-145); TOTAL PROTEIN 7.2 GM/DL (6.4-8.2)
== END ==
LOC: M LAB 11:19
PROVIDERS: ATTEND Family Medicine
DX: I10 Essential (primary) hypertension (principal)

== ENCOUNTER 2019-08-30 16:45 | Inpatient (IN) | payer MEDICARE, OTHER, MEDICAID ==
[~2019-08-30 16:45] MED LIST changes: -MAPA325T2 PO; +MAPA325T8 PO
[2019-08-31] MEDS ORDERED: HEPARIN SOD (PORCINE) 5000UNITS/ML 1ML VIAL/SYRINGE As Ordered ONE (05:27)
[2019-08-31] MEDS ORDERED: PERCOCET 5MG/325MG TAB As Ordered ONE (06:26)
[2019-08-31] MEDS ORDERED: PANTOPRAZOLE 40MG TAB (PROTONIX) As Ordered ONE (10:39)
[2019-08-31] MEDS ORDERED: PERCOCET 5MG/325MG TAB ONE (12:52)
[2019-08-31] MEDS ORDERED: HEPARIN SOD (PORCINE) 5000UNITS/ML 1ML VIAL/SYRINGE ONE ×2 (15:03→22:01)
[2019-08-31] MEDS ORDERED: FUROSEMIDE 20 MG TAB ONE (17:48)
[2019-08-31] MEDS ORDERED: NORCO, ANEXSIA 5/325MG TABLET (HYDROcodone/ACETAMINOPHEN) ONE (18:47)
[2019-08-31] MEDS ORDERED: SIMVASTATIN 10 MG TAB ONE (22:01)
[2019-09-01] MEDS ORDERED: HEPARIN SOD (PORCINE) 5000UNITS/ML 1ML VIAL/SYRINGE ONE ×6 (06:08→20:44)
[2019-09-01] MEDS ORDERED: FUROSEMIDE 20 MG TAB ONE ×6 (06:08→17:49)
[2019-09-01] MEDS ORDERED: NORCO, ANEXSIA 5/325MG TABLET (HYDROcodone/ACETAMINOPHEN) ONE ×4 (09:14→20:44)
[2019-09-01] MEDS ORDERED: MULTIVITAMINS/MINERALS THERAP 1 TAB ONE ×2 (09:14)
[2019-09-01] MEDS ORDERED: SENNA 8.6 MG TAB (SENOKOT) ONE (09:14)
[2019-09-01] MEDS ORDERED: LOSARTAN 50MG TABLET ONE ×2 (09:14)
[2019-09-01] MEDS ORDERED: PANTOPRAZOLE 40MG TAB (PROTONIX) ONE ×2 (09:14)
[2019-09-01] MEDS ORDERED: CLOPIDOGREL 75 MG TAB ONE ×2 (09:14)
[2019-09-01] MEDS ORDERED: SIMVASTATIN 10 MG TAB ONE ×2 (20:44)
[2019-09-02] MEDS ORDERED: HEPARIN SOD (PORCINE) 5000UNITS/ML 1ML VIAL/SYRINGE ONE ×9 (05:39→20:26)
[2019-09-02] MEDS ORDERED: SENNA 8.6 MG TAB (SENOKOT) ONE ×2 (08:30)
[2019-09-02] MEDS ORDERED: LOSARTAN 50MG TABLET ONE ×3 (08:30)
[2019-09-02] MEDS ORDERED: MULTIVITAMINS/MINERALS THERAP 1 TAB ONE ×3 (08:30)
[2019-09-02] MEDS ORDERED: MIRALAX *UNIT DOSE* 17GM PACKET ONE ×2 (08:30)
[2019-09-02] MEDS ORDERED: PANTOPRAZOLE 40MG TAB (PROTONIX) ONE ×3 (08:30)
[2019-09-02] MEDS ORDERED: NORCO, ANEXSIA 5/325MG TABLET (HYDROcodone/ACETAMINOPHEN) ONE ×6 (08:30→17:20)
[2019-09-02] MEDS ORDERED: DOCUSATE SODIUM 100 MG CAP ONE ×4 (08:30→20:26)
[2019-09-02] MEDS ORDERED: FUROSEMIDE 20 MG TAB ONE ×3 (11:00)
[2019-09-02] MEDS ORDERED: SIMVASTATIN 10 MG TAB ONE ×2 (20:26)
[2019-09-03] MEDS ORDERED: NORCO, ANEXSIA 5/325MG TABLET (HYDROcodone/ACETAMINOPHEN) ONE ×6 (02:52→15:25)
[2019-09-03] MEDS ORDERED: HEPARIN SOD (PORCINE) 5000UNITS/ML 1ML VIAL/SYRINGE ONE ×4 (07:05→15:11)
[2019-09-03] MEDS ORDERED: DOCUSATE SODIUM 100 MG CAP ONE ×2 (09:03)
[2019-09-03] MEDS ORDERED: MULTIVITAMINS/MINERALS THERAP 1 TAB ONE ×2 (09:03)
[2019-09-03] MEDS ORDERED: LOSARTAN 50MG TABLET ONE ×2 (09:04)
[2019-09-03] MEDS ORDERED: FUROSEMIDE 20 MG TAB ONE ×2 (09:04→09:06)
[2019-09-03] MEDS ORDERED: PANTOPRAZOLE 40MG TAB (PROTONIX) ONE ×2 (09:04)
[2019-09-03] MEDS ORDERED: SENNA 8.6 MG TAB (SENOKOT) ONE ×2 (09:04)
[2019-09-03] MEDS ORDERED: MIRALAX *UNIT DOSE* 17GM PACKET ONE ×2 (09:04)
[2019-09-03] MEDS ORDERED: ONDANSETRON 4MG/2ML VIAL ONE ×2 (09:59)
[2019-09-03] MEDS ORDERED: POTASSIUM CHLORIDE 10 MEQ SR TABLET ONE ×2 (11:47)
[2019-09-03] MEDS ORDERED: LACTULOSE 20 GM/30 ML SYRUP UD ONE ×2 (11:47)
[2019-09-03] MEDS ORDERED: SIMVASTATIN 10 MG TAB As Ordered ONE (20:54)
[2019-09-03] MEDS ORDERED: HEPARIN SOD (PORCINE) 5000UNITS/ML 1ML VIAL/SYRINGE As Ordered ONE (20:54)
[2019-09-03] MEDS ORDERED: NORCO, ANEXSIA 5/325MG TABLET (HYDROcodone/ACETAMINOPHEN) As Ordered ONE (21:39)
[2019-09-04] MEDS ORDERED: ONDANSETRON 4MG/2ML VIAL As Ordered ONE (02:38)
[2019-09-04] MEDS ORDERED: NORCO, ANEXSIA 5/325MG TABLET (HYDROcodone/ACETAMINOPHEN) As Ordered ONE ×2 (03:59→20:06)
[2019-09-04] MEDS ORDERED: HEPARIN SOD (PORCINE) 5000UNITS/ML 1ML VIAL/SYRINGE As Ordered ONE ×3 (06:18→20:06)
[2019-09-04] MEDS ORDERED: DOCUSATE SODIUM 100 MG CAP As Ordered ONE (10:20)
[2019-09-04] MEDS ORDERED: MULTIVITAMINS/MINERALS THERAP 1 TAB As Ordered ONE (10:21)
[2019-09-04] MEDS ORDERED: SENNA 8.6 MG TAB (SENOKOT) As Ordered ONE (10:21)
[2019-09-04] MEDS ORDERED: MIRALAX *UNIT DOSE* 17GM PACKET As Ordered ONE (10:21)
[2019-09-04] MEDS ORDERED: PANTOPRAZOLE 40MG TAB (PROTONIX) As Ordered ONE (10:21)
[2019-09-04] MEDS ORDERED: LOSARTAN 50MG TABLET As Ordered ONE (10:22)
[2019-09-04] MEDS ORDERED: FUROSEMIDE 20 MG TAB As Ordered ONE (10:22)
[2019-09-04] MEDS ORDERED: ACETAMINOPHEN TAB 650MG DOSE (2X325MG) As Ordered ONE (10:23)
[2019-09-04] MEDS ORDERED: SIMVASTATIN 10 MG TAB As Ordered ONE (20:06)
[2019-09-05] MEDS ORDERED: NYSTATIN 100,000 UNITS/GM TOPICAL PWD 15 GM ONE (09:00)
[2019-09-05] MEDS ORDERED: PANTOPRAZOLE 40MG TAB (PROTONIX) ONE ×3 (09:28→10:00)
[2019-09-05] MEDS ORDERED: FUROSEMIDE 20 MG TAB ONE ×3 (09:28→10:00)
[2019-09-05] MEDS ORDERED: ACETAMINOPHEN TAB 650MG DOSE (2X325MG) ONE ×2 (09:28→09:36)
[2019-09-05] MEDS ORDERED: LOSARTAN 50MG TABLET ONE ×3 (09:28→10:00)
[2019-09-05] MEDS ORDERED: MULTIVITAMINS/MINERALS THERAP 1 TAB ONE ×3 (09:28→10:00)
[2019-09-05] MEDS ORDERED: LIDOCAINE 2% 100MG/5ML SDV (FOR ANES.) As Ordered ONE (12:00)
[2019-09-05] MEDS ORDERED: propofoL 200 MG/20 ML VIAL As Ordered ONE (12:00)
[2019-09-05] MEDS ORDERED: ROCURONIUM BROMIDE 50 MG/5 ML VIAL As Ordered ONE (12:00)
[2019-09-05] MEDS ORDERED: fentaNYL 100 MCG/2 ML INJECTION (J3010) As Ordered ONE ×3 (12:01→14:17)
[2019-09-05] MEDS ORDERED: dexameTHASONE 4 MG/ML 1ML VIAL (J1100 PER 1MG) As Ordered ONE (12:01)
[2019-09-05] MEDS ORDERED: ONDANSETRON 4MG/2ML VIAL As Ordered ONE (12:01)
[2019-09-05] MEDS ORDERED: ceFAZolin 2 GM/D5W 50 ML IV BAG (J0690 PER 500MG) ONE (12:35)
[2019-09-05] MEDS ORDERED: ACETAMINOPHEN 1000MG 100ML IV BTL (OFIRMEV) (J0131 PER 10MG) As Ordered ONE (13:49)
[2019-09-05] MEDS ORDERED: SUGAMMADEX SODIUM 500 MG/5 ML VIAL (BRIDION) As Ordered ONE (13:51)
[2019-09-05] MEDS ORDERED: HYDROMORPHONE HCL 0.5 MG/ 0.5 ML SYRINGE (J1170 PER 1) As Ordered ONE ×2 (14:19→14:27)
[2019-09-05] MEDS ORDERED: oxyCODONE 5MG TAB As Ordered ONE ×2 (14:37→15:22)
[2019-09-05] MEDS ORDERED: SIMVASTATIN 10 MG TAB ONE ×2 (19:58)
[2019-09-05] MEDS ORDERED: NORCO, ANEXSIA 5/325MG TABLET (HYDROcodone/ACETAMINOPHEN) ONE ×2 (19:58)
[2019-09-05] MEDS ORDERED: HEPARIN SOD (PORCINE) 5000UNITS/ML 1ML VIAL/SYRINGE ONE ×2 (19:58)
[2019-09-06] MEDS ORDERED: HEPARIN SOD (PORCINE) 5000UNITS/ML 1ML VIAL/SYRINGE ONE ×6 (05:32→22:26)
[2019-09-06] MEDS ORDERED: NORCO, ANEXSIA 5/325MG TABLET (HYDROcodone/ACETAMINOPHEN) ONE ×6 (05:32→19:16)
[2019-09-06] MEDS ORDERED: MULTIVITAMINS/MINERALS THERAP 1 TAB ONE (09:59)
[2019-09-06] MEDS ORDERED: LOSARTAN 50MG TABLET ONE (10:00)
[2019-09-06] MEDS ORDERED: PANTOPRAZOLE 40MG TAB (PROTONIX) ONE (10:00)
[2019-09-06] MEDS ORDERED: FUROSEMIDE 20 MG TAB ONE (10:01)
[2019-09-06] MEDS ORDERED: ACETAMINOPHEN 325 MG TAB ONE ×2 (15:00→15:01)
[2019-09-06] MEDS ORDERED: CLOPIDOGREL 75 MG TAB ONE ×2 (18:19)
[2019-09-06] MEDS ORDERED: SIMVASTATIN 10 MG TAB ONE ×2 (20:01)
[2019-09-07] MEDS ORDERED: NORCO, ANEXSIA 5/325MG TABLET (HYDROcodone/ACETAMINOPHEN) ONE ×8 (01:38→20:26)
[2019-09-07] MEDS ORDERED: HEPARIN SOD (PORCINE) 5000UNITS/ML 1ML VIAL/SYRINGE ONE ×3 (06:48)
[2019-09-07] MEDS ORDERED: SENNA 8.6 MG TAB (SENOKOT) ONE ×2 (09:36→09:48)
[2019-09-07] MEDS ORDERED: FUROSEMIDE 20 MG TAB ONE ×2 (09:36→09:37)
[2019-09-07] MEDS ORDERED: MULTIVITAMINS/MINERALS THERAP 1 TAB ONE ×2 (09:36→09:47)
[2019-09-07] MEDS ORDERED: DOCUSATE SODIUM 100 MG CAP ONE ×4 (09:36→20:26)
[2019-09-07] MEDS ORDERED: MIRALAX *UNIT DOSE* 17GM PACKET ONE ×2 (09:36→09:37)
[2019-09-07] MEDS ORDERED: LOSARTAN 50MG TABLET ONE ×2 (09:36→09:37)
[2019-09-07] MEDS ORDERED: PANTOPRAZOLE 40MG TAB (PROTONIX) ONE ×2 (09:36)
[2019-09-07] MEDS ORDERED: SIMVASTATIN 10 MG TAB ONE ×2 (20:26)
[2019-09-08] MEDS ORDERED: NORCO, ANEXSIA 5/325MG TABLET (HYDROcodone/ACETAMINOPHEN) ONE ×7 (04:17→20:20)
[2019-09-08] MEDS ORDERED: MULTIVITAMINS/MINERALS THERAP 1 TAB ONE ×2 (09:41→09:42)
[2019-09-08] MEDS ORDERED: DOCUSATE SODIUM 100 MG CAP ONE ×4 (09:41→20:19)
[2019-09-08] MEDS ORDERED: PANTOPRAZOLE 40MG TAB (PROTONIX) ONE ×2 (09:41→09:44)
[2019-09-08] MEDS ORDERED: FUROSEMIDE 20 MG TAB ONE ×2 (09:41→09:45)
[2019-09-08] MEDS ORDERED: LOSARTAN 50MG TABLET ONE ×2 (09:41→09:42)
[2019-09-08] MEDS ORDERED: LACTULOSE 20 GM/30 ML SYRUP UD ONE (09:44)
[2019-09-08] MEDS ORDERED: CLOPIDOGREL 75 MG TAB ONE ×3 (09:45→18:01)
[2019-09-08] MEDS ORDERED: SIMVASTATIN 10 MG TAB ONE ×2 (20:19)
[2019-09-09] MEDS ORDERED: MULTIVITAMINS/MINERALS THERAP 1 TAB As Ordered ONE (08:14)
[2019-09-09] MEDS ORDERED: PANTOPRAZOLE 40MG TAB (PROTONIX) As Ordered ONE (08:14)
[2019-09-09] MEDS ORDERED: DOCUSATE SODIUM 100 MG CAP As Ordered ONE (08:14)
[2019-09-09] MEDS ORDERED: LOSARTAN 50MG TABLET As Ordered ONE (08:14)
[2019-09-09] MEDS ORDERED: FUROSEMIDE 20 MG TAB As Ordered ONE (08:15)
[2019-09-09] MEDS ORDERED: SENNA 8.6 MG TAB (SENOKOT) As Ordered ONE (08:15)
[2019-09-09] MEDS ORDERED: MIRALAX *UNIT DOSE* 17GM PACKET As Ordered ONE (08:15)
[2019-09-09] MEDS ORDERED: NORCO, ANEXSIA 5/325MG TABLET (HYDROcodone/ACETAMINOPHEN) As Ordered ONE (08:16)
[2019-09-26 14:20] LABS: BASO % 0.2 % (0.0-1.0); EOS # 0.1 10^3/uL (0.0-0.5); EOS % 0.7 % (0.0-3.0); HEMOGLOBIN 12.2 g/dl (12.0-15.5); LYMPH # 1.5 10^3/uL (1.5-5.0); MEAN CORPUSCULAR HEMOGLOBIN 32.5 pg (27.0-33.0); MEAN CORPUSCULAR VOLUME 98.7 fl (80.0-96.0); MONO # 1.2 10^3/uL (0.0-0.8); MONO % 7.3 % (0.0-5.0); NEUTROPHILS # 13.7 10^3/uL (1.5-8.5); NEUTROPHILS % 82.4 % (36.0-66.0); PLATELET COUNT, AUTOMATED 316 10^3/uL (150-450); RED BLOOD COUNT 3.75 10^6/uL (4.00-5.40); WHITE BLOOD COUNT 16.6 10^3/uL (4.0-10.0)
[2019-10-07 07:33] LABS: CALCIUM LEVEL 8.3 MG/DL (8.8-10.2); CREATININE FOR GFR 1.37 MG/DL (0.55-1.30); GLOMERULAR FILTRATION RATE 39.7 (>39); POTASSIUM SERUM 3.5 MEQ/L (3.5-5.1)
[2019-10-08 13:42] LABS: HEMATOCRIT 35.1 % (36.0-47.0); HEMOGLOBIN 11.5 g/dl (12.0-15.5); MEAN CORPUSCULAR HEMOGLOBIN 31.9 pg (27.0-33.0); MEAN CORPUSCULAR HGB CONC 32.8 g/dl (32.0-36.5); MEAN CORPUSCULAR VOLUME 97.5 fl (80.0-96.0); PLATELET COUNT, AUTOMATED 305 10^3/uL (150-450); WHITE BLOOD COUNT 9.4 10^3/uL (4.0-10.0)
[2019-10-13 22:56] LABS: HEMATOCRIT 34.2 % (36.0-47.0); HEMOGLOBIN 11.5 g/dl (12.0-15.5); MEAN CORPUSCULAR HEMOGLOBIN 32.7 pg (27.0-33.0); MEAN CORPUSCULAR HGB CONC 33.6 g/dl (32.0-36.5); MEAN CORPUSCULAR VOLUME 97.2 fl (80.0-96.0); PLATELET COUNT, AUTOMATED 307 10^3/uL (150-450); RED BLOOD COUNT 3.52 10^6/uL (4.00-5.40); WHITE BLOOD COUNT 8.8 10^3/uL (4.0-10.0)
[2019-10-16 11:13] LABS: BILIRUBIN,TOTAL 0.7 MG/DL (0.2-1.0); CALCIUM LEVEL 8.7 MG/DL (8.8-10.2); CREATININE FOR GFR 1.05 MG/DL (0.55-1.30); TOTAL PROTEIN 6.2 GM/DL (6.4-8.2)
[2019-10-19 00:10] LABS: CALCIUM LEVEL 8.4 MG/DL (8.8-10.2); CREATININE FOR GFR 1.13 MG/DL (0.55-1.30); GLOMERULAR FILTRATION RATE 49.6 (>39); POTASSIUM SERUM 3.7 MEQ/L (3.5-5.1)
[2019-10-19 01:38] LABS: CALCIUM LEVEL 8.4 MG/DL (8.8-10.2); CREATININE FOR GFR 0.96 MG/DL (0.55-1.30); GLOMERULAR FILTRATION RATE 59.8 (>39); POTASSIUM SERUM 3.3 MEQ/L (3.5-5.1)
[2019-10-21 21:15] LABS: BASO % 0.2 % (0.0-1.0); EOS % 0.8 % (0.0-3.0); HEMATOCRIT 37.3 % (36.0-47.0); HEMOGLOBIN 12.3 g/dl (12.0-15.5); LYMPH % 6.1 % (24.0-44.0); MEAN CORPUSCULAR HEMOGLOBIN 32.7 pg (27.0-33.0); MEAN CORPUSCULAR VOLUME 99.2 fl (80.0-96.0); MONO % 6.3 % (0.0-5.0); NEUTROPHILS % 86.1 % (36.0-66.0); PLATELET COUNT, AUTOMATED 318 10^3/uL (150-450); RED BLOOD COUNT 3.76 10^6/uL (4.00-5.40); WHITE BLOOD COUNT 14.3 10^3/uL (4.0-10.0)
[2019-10-21 21:16] LABS: EOS # 0.1 10^3/uL (0.0-0.5); LYMPH # 0.9 10^3/uL (1.5-5.0); MONO # 0.9 10^3/uL (0.0-0.8); NEUTROPHILS # 12.3 10^3/uL (1.5-8.5)
[2019-10-23 23:01] LABS: HEMOGLOBIN 11.3 g/dl (12.0-15.5); MEAN CORPUSCULAR HEMOGLOBIN 32.4 pg (27.0-33.0); MEAN CORPUSCULAR HGB CONC 33.2 g/dl (32.0-36.5); MEAN CORPUSCULAR VOLUME 97.4 fl (80.0-96.0); PLATELET COUNT, AUTOMATED 321 10^3/uL (150-450); RED BLOOD COUNT 3.49 10^6/uL (4.00-5.40); WHITE BLOOD COUNT 7.5 10^3/uL (4.0-10.0)
[2019-10-25 14:37] LABS: HEMATOCRIT 35.9 % (36.0-47.0); HEMOGLOBIN 11.8 g/dl (12.0-15.5); MEAN CORPUSCULAR HGB CONC 32.9 g/dl (32.0-36.5); MEAN CORPUSCULAR VOLUME 100.3 fl (80.0-96.0); PLATELET COUNT, AUTOMATED 363 10^3/uL (150-450); RED BLOOD COUNT 3.58 10^6/uL (4.00-5.40); WHITE BLOOD COUNT 8.7 10^3/uL (4.0-10.0)
[2019-10-27 14:19] LABS: HEMATOCRIT 32.7 % (36.0-47.0); HEMOGLOBIN 10.8 g/dl (12.0-15.5); MEAN CORPUSCULAR HEMOGLOBIN 32.4 pg (27.0-33.0); MEAN CORPUSCULAR VOLUME 98.2 fl (80.0-96.0); PLATELET COUNT, AUTOMATED 354 10^3/uL (150-450); RED BLOOD COUNT 3.33 10^6/uL (4.00-5.40); WHITE BLOOD COUNT 12.7 10^3/uL (4.0-10.0)
[2019-10-28 17:20] LABS: HEMATOCRIT 34.7 % (36.0-47.0); HEMOGLOBIN 11.4 g/dl (12.0-15.5); MEAN CORPUSCULAR HGB CONC 32.9 g/dl (32.0-36.5); MEAN CORPUSCULAR VOLUME 100.6 fl (80.0-96.0); PLATELET COUNT, AUTOMATED 364 10^3/uL (150-450); RED BLOOD COUNT 3.45 10^6/uL (4.00-5.40)
[2019-10-29 06:31] LABS: HEMATOCRIT 31.8 % (36.0-47.0); HEMOGLOBIN 10.4 g/dl (12.0-15.5); MEAN CORPUSCULAR HEMOGLOBIN 32.6 pg (27.0-33.0); MEAN CORPUSCULAR HGB CONC 32.7 g/dl (32.0-36.5); MEAN CORPUSCULAR VOLUME 99.7 fl (80.0-96.0); PLATELET COUNT, AUTOMATED 326 10^3/uL (150-450); RED BLOOD COUNT 3.19 10^6/uL (4.00-5.40)
--- NOTE | 2019-10-29 11:35 | ECGEPIP ---
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
--- NOTE | 2019-11-06 11:37 | RO ---
Date of Operation: 09/05/2019 Pre-op diagnosis: Left ankle fracture. Post-op diagnosis: Left ankle fracture. Procedure: Left ankle ORIF. Surgeon: Codey Warner MD Utility Worker: Director Sales And Trade Marketing: Dr. Luna Anesthesia: General anesthetic. Operative Preamble: This female had a mechanical fall. She sustained a displaced bimalleolar ankle fracture. We talked about pros, cons, risks, benefits of nonsurgical management versus operative fixation. Generally these are recommended to be fixed surgically. The surgical risks were discussed which include but are not limited to infection, pain, stiffness, bleeding, damage to surrounding structures, neurovascular injury, delayed, mal or nonunion, osteoarthritis, need for further surgery, anesthetic complications, blood clots definite risk. She wished to go ahead. I had previously marked the left lower extremity and we proceeded to surgery. Description of Operation: The patient was brought to the operating theater. She was placed supine on the operating room table. Two grams of IV Ancef were administered. All bony prominences were appropriately padded. A bump was used under the left hip. Bone foam and leg positioner were used. Tourniquet was applied, 34 inch and appropriately padded the left lower extremity. The limb was prepped and draped in the usual sterile fashion, allowing over three minutes of prep solution drying time with chlorhexidine-based prep solution. A preoperative timeout was performed, confirming the site, the patient and surgery. I began by elevating the limb, exsanguinating it with a sterile Esmarch bandage and inflating the tourniquet to 250 mmHg. I made a standard direct lateral incision centered over the distal aspect of the fibula. I carried this dissection down through skin and subcutaneous tissue, achieving meticulous hemostasis. I identified the fracture site, cleared away any interposed fracture callus, periosteum and hematoma. I achieved further manual reduction. The fracture was a short oblique fracture. It did extend at the distal aspect of the fracture and her bone quality is quite poor. As such, this precluded an attempt at placing a lag screw. As such, I chose an 8-hole, 1/3 tubular plate. I placed this directly on the lateral aspect of the bone. I placed upon reduction forceps across the fracture. This achieved a nice reduction on intraop fluoroscopy which I used throughout the case. I inserted proximal and distal screws, all fully- threaded cortical screws aside from the distal screw which was a 60 mm long, 4.0 mm, fully-threaded cancellous screw. I placed the plate for a planned syndesmosis fixation. This was a Ratliff C fracture. Next, I turned my attention to the medial side of the ankle. I made a small curvilinear incision longitudinally centered over the anterolateral aspect of the medial malleolus. I carried dissection down through skin and subcutaneous tissue, achieving meticulous hemostasis. I protected the saphenous vein. I cleared away interposed fracture hematoma, periosteum. I made a small 2.0 mm drill hole in the proximal aspect of the medial malleolus. I attempted to place a fracture clamp upon a reduction forceps across the fracture. However, her bone quality is extremely poor and as such, there was a cutout through the bone. As such, I held the reduction in place, took intraoperative fluoroscopy and placed two guidewires in appropriate position across for planned two 4.0 mm partially- threaded cancellous screws, 46 mm in length, both screws. I overdrilled the proximal cortex. Screws were placed appropriately. I then turned my attention to fixing the syndesmosis. I used the dynamic sign as well as direct visualization of the syndesmosis with manual clamp using my hands at the syndesmosis. I placed one fully-threaded, 3.5 mm cortical screw. This measured approximately 52 mm in length. I placed this across all four cortices. I slightly interdigitated with the medial malleolus screws. I then backed out one of the provisional screws and then inserted a second 3.5 mm screw across the syndesmosis. Unfortunately, this was in line with the medial malleolus screws and as such, I chose three cortices through my 5 mm fully-threaded, 45 mm long screw. Stress test was performed. Syndesmosis was stable. Final radiographs were taken. Unfortunately due to the Druze system being down, these were unable to be saved. The wounds were thoroughly irrigated. The tourniquet was taken down. The subcutaneous tissues were closed with interrupted 2-0 Vicryl sutures and the skin with marion. The skin was cleaned, dry dressing followed by application of Adaptic, 4x4 gauze, ABD dressing and then overwrapped with sterile cast padding. A three-set of plaster of Aubrie splint was then fashioned, overwrapped with sterile six-inch Jeferson bandage and allowed to harden. I put the foot in neutral. The patient was woken up from general anesthetic, transferred off the operating table and taken to the postanesthesia care unit in stable condition. All sponge, needle, clamps and instrument counts were correct. No complications. Estimated blood loss: 20 cc. Plan is for the patient to be nonweightbearing for the next six weeks. She will be readmitted to the hospital under the hospital service if they fail to cope at home and will have PT and OT service as well in the hospital and may resume her Plavix postop day one. Follow-up with myself in the office in two weeks time to discontinue the marion. NOEMI
[2019-11-09 21:16] LABS: CALCIUM LEVEL 8.5 MG/DL (8.8-10.2); CREATININE FOR GFR 1.1 MG/DL (0.55-1.30); GLOMERULAR FILTRATION RATE 51.1 (>39); POTASSIUM SERUM 3.5 MEQ/L (3.5-5.1)
[2019-11-16 08:28] LABS: CALCIUM LEVEL 8.2 MG/DL (8.8-10.2); CREATININE FOR GFR 1.25 MG/DL (0.55-1.30); GLOMERULAR FILTRATION RATE 44.1 (>39); POTASSIUM SERUM 3.4 MEQ/L (3.5-5.1)
[2019-11-29 07:27] LABS: BILIRUBIN,TOTAL 0.6 MG/DL (0.2-1.0); CALCIUM LEVEL 8.7 MG/DL (8.8-10.2); GLOMERULAR FILTRATION RATE 57.1 (>39); POTASSIUM SERUM 3.8 MEQ/L (3.5-5.1)
[2019-11-30 12:32] LABS: BILIRUBIN,TOTAL 0.4 MG/DL (0.2-1.0); CALCIUM LEVEL 8.8 MG/DL (8.8-10.2); CREATININE FOR GFR 1.04 MG/DL (0.55-1.30); GLOMERULAR FILTRATION RATE 54.6 (>39); POTASSIUM SERUM 4.2 MEQ/L (3.5-5.1)
[2019-12-02 09:32] LABS: ALBUMIN 3.1 GM/DL (3.2-5.2); ALT/SGPT 18 U/L (12-78); BILIRUBIN,TOTAL 0.7 MG/DL (0.2-1.0); BLOOD UREA NITROGEN 12 MG/DL (7-18); CARBON DIOXIDE LEVEL 33 MEQ/L (21-32); CHLORIDE LEVEL 100 MEQ/L (98-107); CREATININE FOR GFR 0.93 MG/DL (0.55-1.30); GLOMERULAR FILTRATION RATE > 60.0 (>39); GLUCOSE, FASTING 101 MG/DL (70-100); POTASSIUM SERUM 3.6 MEQ/L (3.5-5.1); SODIUM LEVEL 136 MEQ/L (136-145); TOTAL PROTEIN 6.1 GM/DL (6.4-8.2)
[2019-12-03 12:23] LABS: HEMATOCRIT 36.1 % (36.0-47.0); HEMOGLOBIN 11.8 g/dl (12.0-15.5); MEAN CORPUSCULAR HEMOGLOBIN 32.5 pg (27.0-33.0); MEAN CORPUSCULAR HGB CONC 32.7 g/dl (32.0-36.5); MEAN CORPUSCULAR VOLUME 99.4 fl (80.0-96.0); PLATELET COUNT, AUTOMATED 355 10^3/uL (150-450); RED BLOOD COUNT 3.63 10^6/uL (4.00-5.40); WHITE BLOOD COUNT 9.3 10^3/uL (4.0-10.0)
[2019-12-04 11:28] LABS: BILIRUBIN,TOTAL 0.5 MG/DL (0.2-1.0); CALCIUM LEVEL 8.9 MG/DL (8.8-10.2); CREATININE FOR GFR 1.04 MG/DL (0.55-1.30); GLOMERULAR FILTRATION RATE 54.6 (>39); POTASSIUM SERUM 3.7 MEQ/L (3.5-5.1); TOTAL PROTEIN 5.8 GM/DL (6.4-8.2)
== END 2019-09-09 11:45 | DRG 494 ==
LOC: M ED 16:45 → UNDOADMIN 09-01 19:00 → M MSPAV 09-01 19:00 → M MS5PR 09-01 19:00 → UNDODISIN 09-09 11:45 → EDSTATUS 10-30 09:51
PROVIDERS: ADMIT Internal Medicine; ATTEND Internal Medicine
PROC: 0QSK04Z Reposition Left Fibula with Internal Fixation Device, Open Approach (ICD-10-PCS; principal; 2019-09-05)
DX: S82.452A Displaced comminuted fracture of shaft of left fibula, initial encounter for closed fracture (principal); I10 Essential (primary) hypertension; K21.9 Gastro-esophageal reflux disease without esophagitis; E66.01 Morbid (severe) obesity due to excess calories; K59.00 Constipation, unspecified; E87.6 Hypokalemia; Z88.0 Allergy status to penicillin; Z88.6 Allergy status to analgesic agent; Z79.899 Other long term (current) drug therapy; W18.30XA Fall on same level, unspecified, initial encounter; Y92.009 Unspecified place in unspecified non-institutional (private) residence as the place of occurrence of the external cause

== ENCOUNTER → 2019-09-16 | Outpatient (CLI) | payer MEDICARE, OTHER ==
--- NOTE | 2019-11-10 08:06 | REP ---
ABDOMINAL SERIES HISTORY: Abdominal distention. TECHNIQUE: Cross-table lateral view of the abdomen. FINDINGS: Demonstrates no evidence of free intraperitoneal air. There is no evidence of small bowel obstruction. No dilated small bowel loops are seen. Mild scattered fecal material and air are seen throughout the colon. Metallic clips are seen in the right upper quadrant. A left iliac stent is noted. There are degenerative changes of the spine. IMPRESSION: No evidence of free air or obstruction. MTDD
== END ==
LOC: M RAD 08:00
PROVIDERS: ATTEND Internal Medicine
DX: R14.0 Abdominal distension (gaseous) (principal)

== ENCOUNTER → 2019-09-16 | Outpatient (REF) ==
[2019-11-18 10:28] LABS: HEMOGLOBIN 12.2 g/dl (12.0-15.5); MEAN CORPUSCULAR HEMOGLOBIN 32.7 pg (27.0-33.0); MEAN CORPUSCULAR VOLUME 99.2 fl (80.0-96.0); PLATELET COUNT, AUTOMATED 336 10^3/uL (150-450); RED BLOOD COUNT 3.73 10^6/uL (4.00-5.40); WHITE BLOOD COUNT 8.8 10^3/uL (4.0-10.0)
[2019-11-18 10:37] LABS: APPEARANCE, URINE CLEAR (CLEAR); BACTERIA, URINE AUTO NEGATIVE (NEGATIVE); BILIRUBIN, URINE AUTO NEGATIVE (NEGATIVE); BLOOD, URINE BLOOD NEGATIVE (NEGATIVE); COLOR, URINE YELLOW (YELLOW); GLUCOSE, URINE (UA) AUTO NEGATIVE (NEGATIVE); KETONE, URINE AUTO NEGATIVE (NEGATIVE); LEUKOCYTE ESTERASE, URINE AUTO NEGATIVE (NEGATIVE); NITRITE, URINE AUTO NEGATIVE (NEGATIVE); PROTEIN, URINE AUTO NEGATIVE (NEGATIVE); RBC, URINE AUTO 0 /HPF (0-3); SPECIFIC GRAVITY URINE AUTO 1.013 (1.002-1.035); SQUAMOUS EPITHELIAL CELL UR AU 0 /HPF (0-6); UROBILINOGEN, URINE AUTO 0.2 mg/dL (0.0-2.0); WBC, URINE AUTO 1 /HPF (0-3)
[2019-11-26 14:14] LABS: ALBUMIN 3.1 GM/DL (3.2-5.2); BLOOD UREA NITROGEN 10 MG/DL (7-18); CALCIUM LEVEL 8.9 MG/DL (8.8-10.2); CARBON DIOXIDE LEVEL 29 MEQ/L (21-32); CHLORIDE LEVEL 103 MEQ/L (98-107); CREATININE FOR GFR 0.73 MG/DL (0.55-1.30); GLOMERULAR FILTRATION RATE > 60.0 (>39); GLUCOSE, FASTING 100 MG/DL (70-100); PHOSPHORUS LEVEL 2.6 MG/DL (2.5-4.9); SODIUM LEVEL 139 MEQ/L (136-145)
== END ==
LOC: SKLAB5 12:24
PROVIDERS: ATTEND Nurse Practitioner Family
DX: R34 Anuria and oliguria (principal)

== ENCOUNTER → 2019-09-17 | Outpatient (CLI) | payer MEDICARE, MEDICAID ==
--- NOTE | 2019-10-31 08:57 | REP ---
ABDOMEN KUB HISTORY: Abdominal distention. TECHNIQUE: Two views of the abdomen and pelvis performed. FINDINGS: There is no compelling evidence of small bowel obstruction. No dilated small bowel loops are seen. Mild air is scattered throughout the colon. Metallic clips are seen in the right upper quadrant. There is a left iliac stent. There are degenerative changes of the spine and hips. IMPRESSION: No evidence of small bowel obstruction. MTDD
== END ==
LOC: M RAD 06:45
PROVIDERS: ATTEND Internal Medicine
DX: R14.0 Abdominal distension (gaseous) (principal)

== ENCOUNTER → 2019-09-18 | Outpatient (REF) | LOC: SKLAB5 15:41 | PROVIDERS: ATTEND Nurse Practitioner Family | DX: R34 Anuria and oliguria (principal) ==

== ENCOUNTER → 2019-09-19 | Outpatient (REF) | payer MEDICARE, OTHER ==
[2019-12-12 14:44] LABS: BLOOD UREA NITROGEN 7 MG/DL (7-18); CALCIUM LEVEL 8.9 MG/DL (8.8-10.2); CARBON DIOXIDE LEVEL 29 mmol/L (20-29); CHLORIDE LEVEL 106 MEQ/L (98-107); CREATININE FOR GFR 0.86 MG/DL (0.55-1.30); GLOMERULAR FILTRATION RATE > 60.0 (>39); GLUCOSE, FASTING 126 MG/DL (70-100); POTASSIUM SERUM 3.4 MEQ/L (3.5-5.1); SODIUM LEVEL 142 MEQ/L (136-145)
== END ==
LOC: SKLAB5 09-09 14:39
PROVIDERS: ATTEND Nurse Practitioner Family
DX: Z79.899 Other long term (current) drug therapy (principal)

== ENCOUNTER → 2019-10-07 | Outpatient (REF) ==
[2019-10-07 08:38] LABS: BLOOD UREA NITROGEN 7 MG/DL (7-18); CALCIUM LEVEL 8.6 MG/DL (8.8-10.2); CARBON DIOXIDE LEVEL 28 MEQ/L (21-32); CHLORIDE LEVEL 107 MEQ/L (98-107); CREATININE FOR GFR 0.63 MG/DL (0.55-1.30); GLOMERULAR FILTRATION RATE > 60.0 (>39); GLUCOSE, FASTING 107 MG/DL (70-100); POTASSIUM SERUM 3.8 MEQ/L (3.5-5.1); SODIUM LEVEL 142 MEQ/L (136-145)
== END ==
LOC: SKLAB5 07:34
PROVIDERS: ATTEND Internal Medicine
DX: E87.6 Hypokalemia (principal)

== ENCOUNTER → 2019-11-19 | Outpatient (REF) | payer MEDICARE, OTHER ==
--- NOTE | 2019-11-19 10:24 | ECGEPIP ---
[facility] Test Date: 2019-11-19 Pat Name: SHAVON CHAVEZ Department: Room: - Gender: Female Glost Tile Sorter: RF : 1940 Requested By: ARSENIO DEMARCO [facility] Order Number: [id number] Reading MD: Katerin Coughlin Measurements Intervals [place] Rate: 93 P: 85 TN: 137 QRS: 18 QRSD: 130 T: 48 QT: 400 QTc: 500 Interpretive Statements SINUS RHYTHM WITH OCCASIONAL VENTRICULAR PREMATURE COMPLEXES WITH FREQUENT SUPRAVENTRICULAR PREMATURE COMPLEXES LEFT BUNDLE BRANCH BLOCK QTC LONGER ECTOPY NEW C/W 08/31/19 Electronically Signed on 11-19-2019 10:24:47 EDT by Katerin Coughlin
== END ==
LOC: SKLAB5 08:28
PROVIDERS: ATTEND Internal Medicine
DX: I44.7 Left bundle-branch block, unspecified (principal)

== ENCOUNTER → 2020-03-11 | Outpatient (CLI) | payer MEDICARE, MEDICAID ==
[~2020-03-11] MED LIST changes: +HYDR-3490 PO; -HYDR25TAB PO; -MAG400TA PO; +MAGN400T35 PO; -PEG1POW PO; +POLY17PO18 PO
--- NOTE | 2020-03-12 10:14 | REP ---
INDICATION: LEFT ANKLE PAIN. COMPARISON: Comparison left ankle radiographs 29 August 2019.. TECHNIQUE: Four views. FINDINGS: Four views of the left ankle demonstrate that the patient is status post distal fibular screw plate fixation and medial malleolar screw fixation for previous bimalleolar left ankle fracture. There is diffuse osteopenia. There is some diffuse soft tissue swelling. No acute fracture or erosive changes seen. Ankle mortise is intact. There is Achilles calcaneal spurring again noted. IMPRESSION: Post open reduction internal fixation. Diffuse osteopenia and mild diffuse soft tissue swelling. Achilles calcaneal spurring. No acute bony abnormality. <Electronically signed by Herman Dennis > 03/12/20 1011
== END ==
LOC: M SOG 09:42
PROVIDERS: ATTEND Orthopaedic Surgery Sports Medicine
DX: S82.842D Displaced bimalleolar fracture of left lower leg, subsequent encounter for closed fracture with routine healing (principal); S93.432D Sprain of tibiofibular ligament of left ankle, subsequent encounter

== ENCOUNTER → 2020-04-01 | Outpatient (CLI) | payer SELFPAY ==
[~2020-04-01] MED LIST changes: +PEG1POW PO; -POLY17PO18 PO
== END ==
LOC: M LABSMTC 12:41
PROVIDERS: ATTEND Pediatrics
DX: Z11.52 Encounter for screening for COVID-19 (principal)

== ENCOUNTER → 2020-05-17 | Outpatient (CLI) | payer MEDICARE, MEDICAID ==
[~2020-05-17] MED LIST changes: -PEG1POW PO; +POLY17PO18 PO
--- NOTE | 2020-05-17 13:18 | REP ---
INDICATION: ATH LISA ART OF EXT RASHMI LEGS, ANEURYSM LOWER EXT COMPARISON: 11/14/2018. TECHNIQUE: Real time nava scale and Duplex Doppler evaluation of the bilateral lower extremity arterial vasculature using linear high frequency transducer. FINDINGS: Nava scale and duplex doppler images demonstrate moderate to severe diffuse plaquing bilaterally. There is somewhat limited visualization of the right popliteal artery due to coils placed in an aneurysm at that location. Diffuse biphasic waveforms are seen bilaterally. There is no compelling duplex Doppler sonographic evidence of hemodynamically significant stenosis bilaterally. There is no arterial occlusion. Peak systolic velocities (cm/sec) Common femoral artery: Right 228; Left 107 Profunda femoris: Right 135; Left 155 SFA (proximal): Right 173; Left 178 SFA (mid): Right 117; Left 140 SFA (distal): Right 107; Left 117 Popliteal artery: Right 30; Left 70 TITO (prox.): Right 55; Left 55 Tibioperoneal trunk: Right 46; Left 129 SECOND OPERATOR (prox.): Right 58; Left 24 SECOND OPERATOR (distal): Right 76; Left 108 TITO (distal): Right 42; Left 62 IMPRESSION: Moderate to severe diffuse plaquing bilaterally. No evidence of significant stenosis or arterial occlusion. <Electronically signed by Solo Nava > 05/17/20 [id number]
== END ==
LOC: M RAD 09:40
PROVIDERS: ATTEND Physician Assistant
DX: I72.4 Aneurysm of artery of lower extremity (principal); I70.293 Other atherosclerosis of native arteries of extremities, bilateral legs

== ENCOUNTER → 2020-06-08 | Outpatient (CLI) | payer MEDICARE, MEDICAID ==
--- NOTE | 2020-06-08 11:17 | REP ---
INDICATION: PAIN. COMPARISON: 10/17/2017. TECHNIQUE: Six views left knee. FINDINGS: There is mild narrowing of both the medial and lateral joint compartments with associated chondrocalcinosis. There is moderate narrowing of the patellofemoral joint centrally with subchondral sclerosis. There is moderate spurring of the superior pole of the patella and mild spurring of the inferior pole. I suspect a small suprapatellar effusion. Vascular calcifications are seen posteriorly. IMPRESSION: Arthritic changes as above. <Electronically signed by Solo Nava > 06/08/20 1115
--- NOTE | 2020-06-08 11:37 | REP ---
INDICATION: PAIN. COMPARISON: 03/11/2020. TECHNIQUE: Four views left ankle. FINDINGS: There is no change since the prior exam. No acute fracture or dislocation is seen. Metallic plate and multiple screws are seen in the distal fibula, 2 of the more distal screws extend into the distal tibia. There also 2 screws located in the medial malleolus. Diffuse soft tissue swelling is unchanged. The ankle mortise is anatomic. Mild posterior calcaneal spurring is again noted. IMPRESSION: Stable exam. <Electronically signed by Solo Nava > 06/08/20 [id number]
== END ==
LOC: M SOG 10:13
PROVIDERS: ATTEND Orthopaedic Surgery Sports Medicine
DX: Z47.89 Encounter for other orthopedic aftercare (principal); M17.12 Unilateral primary osteoarthritis, left knee

== ENCOUNTER → 2020-07-15 | Outpatient (CLI) | payer MEDICARE, MEDICAID ==
[2020-07-15 10:11] LABS: HEMATOCRIT 37.2 % (36.0-47.0); HEMOGLOBIN 12.1 g/dl (12.0-15.5); MEAN CORPUSCULAR HEMOGLOBIN 32.1 pg (27.0-33.0); MEAN CORPUSCULAR HGB CONC 32.5 g/dl (32.0-36.5); MEAN CORPUSCULAR VOLUME 98.7 fl (80.0-96.0); PLATELET COUNT, AUTOMATED 267 10^3/uL (150-450); RED BLOOD COUNT 3.77 10^6/uL (4.00-5.40); WHITE BLOOD COUNT 10.2 10^3/uL (4.0-10.0)
[2020-07-15 10:55] LABS: ALBUMIN 3.3 GM/DL (3.2-5.2); ALT/SGPT 24 U/L (12-78); BILIRUBIN,TOTAL 0.4 MG/DL (0.2-1.0); BLOOD UREA NITROGEN 16 MG/DL (7-18); CALCIUM LEVEL 8.8 MG/DL (8.8-10.2); CARBON DIOXIDE LEVEL 34 MEQ/L (21-32); CHLORIDE LEVEL 97 MEQ/L (98-107); CREATININE FOR GFR 0.75 MG/DL (0.55-1.30); GLOMERULAR FILTRATION RATE > 60.0 (>39); GLUCOSE, FASTING 90 MG/DL (70-100); POTASSIUM SERUM 4.2 MEQ/L (3.5-5.1); SODIUM LEVEL 134 MEQ/L (136-145); TOTAL PROTEIN 6.6 GM/DL (6.4-8.2)
== END ==
LOC: M LAB 09:37
PROVIDERS: ATTEND Family Medicine
DX: I10 Essential (primary) hypertension (principal)

== ENCOUNTER → 2020-11-18 | Outpatient (CLI) | payer MEDICARE, OTHER ==
[~2020-11-18] MED LIST changes: -KLOR10TA76 PO; +POTA-136 PO
[2020-11-18 12:06] LABS: ALBUMIN 3.5 GM/DL (3.2-5.2); ALT/SGPT 18 U/L (12-78); BILIRUBIN,TOTAL 0.4 MG/DL (0.2-1.0); BLOOD UREA NITROGEN 12 MG/DL (7-18); CALCIUM LEVEL 9.7 MG/DL (8.8-10.2); CARBON DIOXIDE LEVEL 31 MEQ/L (21-32); CHLORIDE LEVEL 103 MEQ/L (98-107); CREATININE FOR GFR 0.93 MG/DL (0.55-1.30); GLOMERULAR FILTRATION RATE > 60.0 (>39); GLUCOSE, FASTING 107 MG/DL (70-100); POTASSIUM SERUM 4.2 MEQ/L (3.5-5.1); SODIUM LEVEL 139 MEQ/L (136-145)
== END ==
LOC: M LAB 10:46
PROVIDERS: ATTEND Family Medicine
DX: R60.9 Edema, unspecified (principal)

== ENCOUNTER → 2021-11-09 | Outpatient (CLI) | payer MEDICARE, OTHER ==
[~2021-11-09] MED LIST changes: +LOSA100T45 PO; -LOSA100T50 PO
[2021-11-09 11:26] LABS: HEMATOCRIT 40.1 % (36.0-47.0); MEAN CORPUSCULAR HEMOGLOBIN 31.6 pg (27.0-33.0); MEAN CORPUSCULAR HGB CONC 32.4 g/dl (32.0-36.5); MEAN CORPUSCULAR VOLUME 97.6 fl (80.0-96.0); PLATELET COUNT, AUTOMATED 290 10^3/uL (150-450); RED BLOOD COUNT 4.11 10^6/uL (4.00-5.40); WHITE BLOOD COUNT 8.8 10^3/uL (4.0-10.0)
[2021-11-09 12:23] LABS: ALBUMIN 3.8 GM/DL (3.2-5.2); ALT/SGPT 21 U/L (12-78); BILIRUBIN,TOTAL 0.4 MG/DL (0.2-1.0); BLOOD UREA NITROGEN 10 MG/DL (7-18); CALCIUM LEVEL 9.5 MG/DL (8.8-10.2); CARBON DIOXIDE LEVEL 33 MEQ/L (21-32); CHLORIDE LEVEL 100 MEQ/L (98-107); CREATININE FOR GFR 0.95 MG/DL (0.55-1.30); GLOMERULAR FILTRATION RATE > 60.0 (>32); GLUCOSE, FASTING 107 MG/DL (70-100); SODIUM LEVEL 136 MEQ/L (136-145); TOTAL PROTEIN 7.8 GM/DL (6.4-8.2)
[2021-11-09 23:15] LABS: TOTAL 25(OH) VITAMIN D 52.7 NG/ML (30.0-100.0)
== END ==
LOC: M RAD 10:48
PROVIDERS: ATTEND Family Medicine
DX: M11.262 Other chondrocalcinosis, left knee (principal); M17.12 Unilateral primary osteoarthritis, left knee; M25.462 Effusion, left knee; Z79.899 Other long term (current) drug therapy

== ENCOUNTER → 2021-11-25 | Outpatient (CLI) | payer MEDICARE | LOC: M RAD 10:11 | PROVIDERS: ATTEND Surgery | DX: I72.4 Aneurysm of artery of lower extremity (principal) ==

== ENCOUNTER → 2022-07-14 | Outpatient (REF) | payer MEDICARE ==
[~2022-07-14] MED LIST changes: +CLOP75TA99 PO; -LOSA100T45 PO; +LOSA100T46 PO; -PLAV1TAB2 PO
[2022-07-14 12:00] LABS: APPEARANCE, URINE MANUAL CLEAR (CLEAR); COLOR, URINE MANUAL LT YELLOW (YELLOW); PH,URINE MAN 5.5 UNITS (5.0 - 7.0)
[2022-07-14 12:01] LABS: BILIRUBIN, URINE MANUAL NEGATIVE (NEGATIVE); BLOOD URINE MANUAL NEGATIVE (NEGATIVE); GLUCOSE, URINE (UA) MANUAL NEGATIVE (NEGATIVE); KETONE, URINE MANUAL NEGATIVE (NEGATIVE); LEUKOCYTE ESTERASE, URINE MAN NEGATIVE (NEGATIVE); NITRITE, URINE MANUAL NEGATIVE (NEGATIVE); PROTEIN, URINE MANUAL NEGATIVE (NEGATIVE); SPECIFIC GRAVITY,URINE MANUAL 1.005 (1.002-1.035); UROBILINOGEN, URINE MANUAL NORMAL (NORMAL)
== END ==
LOC: M LAB REF 11:08
PROVIDERS: ATTEND Family Medicine
DX: R35.0 Frequency of micturition (principal)

== ENCOUNTER → 2022-07-27 | Outpatient (CLI) | payer MEDICARE, MEDICAID ==
[2022-07-27 12:12] LABS: APPEARANCE, URINE CLEAR (CLEAR); BACTERIA, URINE AUTO NEGATIVE (NEGATIVE); BILIRUBIN, URINE AUTO NEGATIVE (NEGATIVE); BLOOD, URINE BLOOD NEGATIVE (NEGATIVE); COLOR, URINE STRAW (YELLOW); GLUCOSE, URINE (UA) AUTO NEGATIVE (NEGATIVE); KETONE, URINE AUTO NEGATIVE (NEGATIVE); LEUKOCYTE ESTERASE, URINE AUTO NEGATIVE (NEGATIVE); NITRITE, URINE AUTO NEGATIVE (NEGATIVE); PROTEIN, URINE AUTO NEGATIVE (NEGATIVE); RBC, URINE AUTO 0 /HPF (0-3); SPECIFIC GRAVITY URINE AUTO 1.006 (1.002-1.035); SQUAMOUS EPITHELIAL CELL UR AU 0 /HPF (0-6); UROBILINOGEN, URINE AUTO 0.2 mg/dL (0.0-2.0); WBC, URINE AUTO 1 /HPF (0-3)
== END ==
LOC: M LAB 10:49
PROVIDERS: ATTEND Family Medicine
DX: R30.0 Dysuria (principal)

== ENCOUNTER → 2023-05-24 | Outpatient (REF) | payer MEDICARE, OTHER ==
[~2023-05-24] MED LIST changes: +MECL-209 PO; -MECL1TAB31 PO
[2023-05-24 12:22] LABS: APPEARANCE, URINE CLEAR (CLEAR); BACTERIA, URINE AUTO NEGATIVE (NEGATIVE); BILIRUBIN, URINE AUTO NEGATIVE (NEGATIVE); BLOOD, URINE BLOOD NEGATIVE (NEGATIVE); COLOR, URINE YELLOW (YELLOW); GLUCOSE, URINE (UA) AUTO NEGATIVE (NEGATIVE); KETONE, URINE AUTO NEGATIVE (NEGATIVE); LEUKOCYTE ESTERASE, URINE AUTO NEGATIVE (NEGATIVE); NITRITE, URINE AUTO NEGATIVE (NEGATIVE); PROTEIN, URINE AUTO NEGATIVE (NEGATIVE); RBC, URINE AUTO 0 /HPF (0-3); SPECIFIC GRAVITY URINE AUTO 1.014 (1.002-1.035); SQUAMOUS EPITHELIAL CELL UR AU 3 /HPF (0-6); UROBILINOGEN, URINE AUTO 0.2 mg/dL (0.0-2.0); WBC, URINE AUTO 1 /HPF (0-3)
== END ==
LOC: M LAB REF 11:17
PROVIDERS: ATTEND Family Medicine
DX: R35.0 Frequency of micturition (principal)

== ENCOUNTER → 2023-06-08 | Outpatient (CLI) | payer MEDICARE, OTHER ==
[2023-06-08 11:36] LABS: BASO # 0.1 10^3/uL (0.0-0.2); BASO % 0.6 % (0.0-1.0); EOS # 0.4 10^3/uL (0.0-0.5); HEMATOCRIT 37.3 % (36.0-47.0); HEMOGLOBIN 12.4 g/dl (12.0-15.5); LYMPH # 1.6 10^3/uL (1.5-5.0); LYMPH % 18.2 % (24.0-44.0); MEAN CORPUSCULAR HEMOGLOBIN 31.2 pg (27.0-33.0); MEAN CORPUSCULAR HGB CONC 33.2 g/dl (32.0-36.5); MONO # 0.8 10^3/uL (0.0-0.8); MONO % 8.9 % (2.0-8.0); NEUTROPHILS # 5.9 10^3/uL (1.5-8.5); NEUTROPHILS % 67.1 % (36.0-66.0); PLATELET COUNT, AUTOMATED 296 10^3/uL (150-450); RED BLOOD COUNT 3.97 10^6/uL (4.00-5.40); WHITE BLOOD COUNT 8.8 10^3/uL (4.0-10.0)
[2023-06-08 12:07] LABS: ALBUMIN 3.3 G/DL (3.2-5.2); ALKALINE PHOSPHATASE 90 U/L (46-116); ALT/SGPT 11 U/L (7.0-40); AST/SGOT 14 U/L (<34); BILIRUBIN,TOTAL 0.5 MG/DL (0.3-1.2); BLOOD UREA NITROGEN 10 MG/DL (9-23); CALCIUM LEVEL 9.2 MG/DL (8.3-10.6); CARBON DIOXIDE LEVEL 31 MMOL/L (20-31); CHLORIDE LEVEL 101 MMOL/L (98-107); CREATININE FOR GFR 0.82 MG/DL (0.55-1.30); GLOMERULAR FILTRATION RATE > 60.0 (>32); GLUCOSE, FASTING 124 MG/DL (74-106); POTASSIUM SERUM 4.3 MMOL/L (3.5-5.1); SODIUM LEVEL 139 MMOL/L (136-145)
[2023-06-08 12:08] LABS: TOTAL 25(OH) VITAMIN D 42.2 NG/ML (20.0-100.0)
== END ==
LOC: M LAB 10:18
PROVIDERS: ATTEND Family Medicine
DX: E55.9 Vitamin D deficiency, unspecified (principal)

== ENCOUNTER → 2023-12-25 | Outpatient (REF) | payer OTHER, MEDICARE ==
[~2023-12-25] MED LIST changes: +NYST1POW3 TOP; -NYST1POW9 TOP
[2023-12-25 11:44] LABS: APPEARANCE, URINE CLEAR (CLEAR); BACTERIA, URINE AUTO NEGATIVE (NEGATIVE); BILIRUBIN, URINE AUTO NEGATIVE (NEGATIVE); BLOOD, URINE BLOOD NEGATIVE (NEGATIVE); COLOR, URINE STRAW (YELLOW); GLUCOSE, URINE (UA) AUTO NEGATIVE (NEGATIVE); KETONE, URINE AUTO NEGATIVE (NEGATIVE); LEUKOCYTE ESTERASE, URINE AUTO NEGATIVE (NEGATIVE); NITRITE, URINE AUTO NEGATIVE (NEGATIVE); PROTEIN, URINE AUTO NEGATIVE (NEGATIVE); RBC, URINE AUTO 0 /HPF (0-3); SPECIFIC GRAVITY URINE AUTO 1.004 (1.002-1.035); SQUAMOUS EPITHELIAL CELL UR AU 0 /HPF (0-6); UROBILINOGEN, URINE AUTO 0.2 mg/dL (0.0-2.0); WBC, URINE AUTO 0 /HPF (0-3)
== END ==
LOC: M LAB REF 11:18
PROVIDERS: ATTEND Family Medicine
DX: R30.0 Dysuria (principal)

== ENCOUNTER → 2024-11-19 | Outpatient (REF) | payer MEDICARE ==
[~2024-11-19] MED LIST changes: -FLOM0.4C39 PO; +TAMS-18 PO
[2024-11-19 18:14] LABS: BASO # 0.1 10^3/uL (0.0-0.2); BASO % 0.6 % (0.0-1.0); EOS # 0.4 10^3/uL (0.0-0.5); EOS % 3.9 % (0.0-3.0); LYMPH # 1.4 10^3/uL (1.5-5.0); LYMPH % 13.3 % (24.0-44.0); MONO # 0.9 10^3/uL (0.0-0.8); MONO % 8.5 % (2.0-8.0); NEUTROPHILS # 7.8 10^3/uL (1.5-8.5); NEUTROPHILS % 73.4 % (36.0-66.0); PLATELET COUNT, AUTOMATED 332 10^3/uL (150-450)
[2024-11-19 18:36] LABS: ESTIMATED AVERAGE GLUCOSE 140.0 MG/DL (60-110)
[2024-11-19 18:45] LABS: ALT/SGPT 13.0 U/L (7.0-40); AST/SGOT 16.0 U/L (<34); CALCIUM LEVEL 9.1 MG/DL (8.3-10.6); CARBON DIOXIDE LEVEL 27.0 MMOL/L (20-31); CHLORIDE LEVEL 101.0 MMOL/L (98-107); CHOLESTEROL LEVEL 150.0 MG/DL (<200); CHOLESTEROL RISK RATIO 2.95 (<5); CREATININE FOR GFR 0.87 MG/DL (0.55-1.30); GLOMERULAR FILTRATION RATE 66.1 (>32); LDL CHOLESTEROL 75.2 MG/DL (<100); NON-HDL-C 99.2 MG/DL; POTASSIUM SERUM 4.3 MMOL/L (3.5-5.1); SODIUM LEVEL 141.0 MMOL/L (136-145); TRIGLYCERIDES LEVEL 120.0 MG/DL (<150)
[2024-11-19 19:26] LABS: APPEARANCE, URINE HAZY (CLEAR); BACTERIA, URINE AUTO NEGATIVE (NEGATIVE); BILIRUBIN, URINE AUTO NEGATIVE (NEGATIVE); BLOOD, URINE BLOOD NEGATIVE (NEGATIVE); GLUCOSE, URINE (UA) AUTO NEGATIVE (NEGATIVE); KETONE, URINE AUTO NEGATIVE (NEGATIVE); LEUKOCYTE ESTERASE, URINE AUTO TRACE (NEGATIVE); NITRITE, URINE AUTO NEGATIVE (NEGATIVE); PROTEIN, URINE AUTO 2+ mg/dL (NEGATIVE); RBC, URINE AUTO 0 /HPF (0-3); SPECIFIC GRAVITY URINE AUTO 1.011 (1.002-1.035); SQUAMOUS EPITHELIAL CELL UR AU 6 /HPF (0-6); UROBILINOGEN, URINE AUTO 0.2 mg/dL (0.0-2.0); WBC, URINE AUTO 5 /HPF (0-3)
== END ==
LOC: M SFHCLERA 14:29
PROVIDERS: ATTEND Internal Medicine
DX: I10 Essential (primary) hypertension (principal); Z79.899 Other long term (current) drug therapy